=== PATIENT | female | born 1960 | race Caucasian/White ===

== ENCOUNTER 2023-08-26 10:15 | Emergency (ER) | payer OTHER, SELFPAY ==
[2023-08-26 10:21] VITALS: BP 126/86
--- NOTE | 2023-08-26 10:33 | ED.GENMED ---
History of Present Illness
General
Chief Complaint: Seizure
Source: patient and long-term records
Exam Limitations: dementia
Time Seen by Provider: 08/26/23 10:29
Nursing documentation reviewed up to this point in time: agreed with except (Pt did not fall.)
Travel History
Have you had any contact with someone who has COVID-19?: Unable to Answer
Do you have any symptoms of coronavirus? Fever > 100 degrees, chills, cough, shortness of breath, sore throat, loss of taste or smell, muscle aches, or headache?: Unable to Answer
History of Present Illness
History of Present Illness:
62-year-old female from [facility] in [place] with history of dementia, HLD, anxiety presents for possible seizure. Pt is unable to provide any history due to dementia. EMS reports pt had a fall in , then had a 'seizure.'
Unable to reach staff at [facility], message left, no call back. Also got number from pt daughter and left message on charge nurse Jammie's phone to call back.
Spoke with daughter Rhiannon, pt has no hx of seizures. Pt is more tremulous, 'this is not like her.' States she is never this tremulous.
States mom at baseline is 100% assist with walking, must hold onto someone with both hands to ambulate short distances such as to chair or bathroom. Otherwise, bed or chairbound.
08/26/2023 1128 AM
Spoke with nurse metal fabrication supervisor Jammie who states the tremors are her normal. Care staff got her up out of bed she was her normal self, 'giggling and everything seemed fine.' As she was sitting on the toilet she started to have seizure-like activity
shaking of all extremities, eyes rolled back, struck right side of head on the wall, but there was NO fall. Entire episode occurred while sitting on the toilet. Afterwards she was 'unresponsive' She never fell.
Jammie states pt does ambulate pretty frequently independently but she needs guidance, otherwise she just goes in circles.
Past History
Past History
ED Past Medical History: Psychiatric (dementia)
Review of Systems
Review of Systems
Allergies reviewed?: Yes
All Other Systems: ROS reviewed and negative except as documented in HPI and ROS
Constitutional: Denies fever
ABD/GI: Denies vomiting or diarrhea
Musculoskeletal: Denies edema
Skin: Reports no symptoms
Phy Exam
Physical Exam
Physical Exam:
GENERAL: No acute distress. Alert, demented, mumbling constantly
CONSTITUTIONAL: Afebrile.
EYES: PERRL, conjunctivae normal
Head: NC/AT
Neck: Supple
ENMT: moist mucus membranes, Pharynx nl, no intraoral trauma
RESPIRATORY: Regular respirations, nonlabored, lungs clear.
CARDIOVASCULAR: Regular rate and rhythm, no murmurs, no rubs.
GI: Soft, nontender, normal BS
MUSCULOSKELETAL: Moves with ease. Well perfused. No edema
SKIN: Warm, dry, pink
PSYCH: Anxious mood and affect. Demented. Flailing tremulous arms, constantly mumbling nonsensically
NEUROLOGIC: Awake, alert demented, unable to communicate, strength 5/5 throughout.
Course
Orders/Labs/Results
Orders:
Orders
08/26/23 10:52
Complete Blood Count/With Diff Urgent
Comprehensive Metabolic Panel Urgent
UA Reflex to Culture [Urinalysis Reflex To Culture] Urgent
Date Specimen was Collected: 08/26/23
Time Specimen was Collected: 10:37
Urine Microscopic Reflex Cult Urgent
08/26/23 11:32
CT Head W/o Iv Contrast Urgent
Comment:
Reason For Exam: questionable new seizure
08/26/23 11:56
Lorazepam [Ativan] 0.5 mg IV NOW STA
Abnormal Lab Results
08/26/23
10:52
WBC 11.6 H 10^3/uL
(4.8-10.8)
MCH 31.2 H pg
(27.0-31.0)
Abs Immat Gran (auto) 0.4 H 10^3/uL
(0-0.05)
Absolute Neuts (auto) 9.4 H 10^3/uL
(1.4-6.5)
Immature Gran % 3.0 H %
(0-0.5)
Neutrophils % 81.0 H %
(42.2-75.2)
Lymphocytes % 12.2 L %
(20.5-51.1)
Glucose 130 H mg/dl
(70-99)
Urine Ketones Trace A
(Negative)
Ur Occult Blood Reflex Trace A
(Negative)
Urine Bacteria (Reflex) Few A
(Negative)
08/26/23 10:52
08/26/23 10:52
Vital Signs
Initial and Last Documented VS:
Initial Vital Signs
Temp Pulse Resp BP Pulse Ox
99.5 F 85 11 126/86 99
08/26/23 10:21 08/26/23 10:21 08/26/23 10:21 08/26/23 10:21 08/26/23 10:21
Last Documented Vital Signs
Temp Pulse Resp BP Pulse Ox
99.5 F 88 30 126/86 99
08/26/23 10:21 08/26/23 14:15 08/26/23 14:15 08/26/23 14:00 08/26/23 10:21
MDM/Problems Addressed
Differential Diagnosis Includes:
UTI, dehydration, anxiety, seizure, advancing dementia
MDM/Problems Addressed:
62-year-old female from [facility] in [place] with history of dementia, HLD, anxiety presents for possible seizure. Pt is unable to provide any history due to dementia. EMS reports pt had a fall in [place], then had a 'seizure.'
Unable to reach staff at [facility], message left, no call back. Also got number from pt daughter and left message on charge nurse Jammie's phone to call back.
Spoke with daughter Rhiannon, pt has no hx of seizures. Pt is more tremulous, 'this is not like her.' States she is never this tremulous.
States mom at baseline is 100% assist with walking, must hold onto someone with both hands to ambulate short distances such as to chair or bathroom. Otherwise, bed or chairbound.
Afebrile
No seizure activity noted, very tremulous upper extremities, flailing upper arms around but she just had a difficult straight cathed for U/A so may be reaction to that.
08/26/2023 1146 AM
CBC with no clinically significant abnormality
CMP normal
UA negative
Pt continues with constant mumbling, trembling, at bedside with daughter, they say she gets this way when her medication is due.
Called Jammie who states she got her Alprazolam 0.5 mg one hour prior to this event and is not due again until 2 p.m.
I will give Lorazepam to calm her down for the CT scan. Family agree with all of the events of the morning she may very well be anxious, they are comfortable with the plan
08/26/2023 1320 PM
CAT scan showing nothing acute
Patient more calm after lorazepam, continues escalations of babbling and tremors arms.
No seizure activity during stay, no indication for antiseizure meds at this time, referred back to PCP and Neurology if questionable seizures recur.
Neg w/u discussed with family, pt stable for discharge.
*Critical Care Note
Total Time (30-74mins, 75-104mins- exclusive of procedures): Not Applicable
ED Attending Note
-
Portions of this chart may have been created with voice recognition software.� Occasional wrong word or��sound alike� substitutions may have occurred due to the inherent limitations of voice recognition software.
Discharge Plan
Departure
Patient Disposition: Home (Routine Discharge)
Date of Disposition: 08/26/23
Time of Disposition: 13:44
Patient with high blood pressure during this ER visit?: No
Condition: Fair
Discharge Problem:
Change in mental state
Instructions: Seizures, Adult (DC), Altered Mental Status (DC)
Prescriptions:
No Action
acetaminophen [Tylenol] 325 mg Tablet
650 mg PO Q6HPRN PRN (Reason: mild pain)
polyethylene glycol 3350 [Miralax] 17 gram Powder In Packet
8.5 g PO MOWEFR
donepezil 10 mg Tablet
10 mg PO HS
alprazolam [Xanax] 0.5 mg Tablet
0.5 mg PO BID
escitalopram oxalate [Lexapro] 20 mg Tablet
30 mg PO HS
aripiprazole [Abilify] 5 mg Tablet
5 mg PO HS
rosuvastatin [Crestor] 5 mg Tablet
5 mg PO HS
Referrals:
Medical, Personnel at [facility] [Other] - Follow up in 2-3 days
Jovita Davey MD [Active] - As needed
Laura Moe MD [Family Provider] -
Activity Restrictions/Additional Instructions:
As we discussed, there has been generalized tremors, worse at times with stimulation but no seizure activity here today.
Although I can't confirm seizure activity, I have provided instruction for seizures FYI.
Head CT show nothing worrisome.
Blood work and urine show nothing worrisome.
I have provided the name of a Neurologist to follow up with as needed.
Please have primary doctor evaluate her within next 48 hours, sooner if questionable seizure activity recurs. If recurs, she may need to be started on anti seizure medication.
Mrs. Hale had Lorazepam 0.5 mg IV here at 12 noon.
Interventions
Interventions:
*Risk Screen - Suicide Last Done: 08/26/23 10:21
*General Assessment Last Done: 08/26/23 10:21
*Neglect/Abuse Screening Last Done: 08/26/23 10:21
ED- Fall Risk Assessment Last Done: 08/26/23 14:27
*ED COVID-19 Vaccine History Last Done: 08/26/23 10:21
*Nursing Disposition Last Done: 08/26/23 14:27
ED- Cardiac Assessment Last Done: 08/26/23 10:33
ED- Neurological Assessment Last Done: 08/26/23 10:33
ED- Pulmonary Assessment Last Done: 08/26/23 10:33
Discharge Date and Time
Discharge Date/Time: 08/26/23 14:43
[2023-08-26 11:05] LABS: % Basophils 0.3 % (0-2); % Eosinophils 0.1 % (0-6); % Lymphocytes 12.2 % (20.5-51.1); % Monocytes 3.4 % (1.7-9.3); Absolute Immature Granulocytes 0.4 10^3/uL (0-0.05); Absolute Lymphocytes 1.4 10^3/uL (1.2-3.4); Absolute Monocytes 0.4 10^3/uL (0.1-0.6); Absolute Neutrophils 9.4 10^3/uL (1.4-6.5); Hematocrit 38.2 % (37.0-47.0); Hemoglobin 13.3 g/dL (12.0-16.0); Mean Corp Hgb Conc. 34.8 g/dL (33.0-37.0); Mean Corpuscular Hgb 31.2 pg (27.0-31.0); Mean Corpuscular Volume 89.7 fL (81.0-99.0); Mean Platelet Volume 8.9 fL (7.4-10.4); Nucleated Red Blood Cells % 0 %; Platelet Count 286 10^3/uL (130-400); Red Blood Cell Count 4.26 10^6/uL (4.20-5.40); Red Cell Dist. Width 13.2 % (11.5-14.5); Urine Albumin Trace (Neg - Trace); Urine Bilirubin Negative (Negative); Urine Character Clear (Clear); Urine Color Yellow; Urine Glucose Negative (Negative); Urine Ketone Trace (Negative); Urine Leukocyte Negative (Negative); Urine Nitrite Negative (Negative); Urine Occult Blood Trace (Negative); Urine Urobilinogen Negative (Neg - 1+); White Blood Cell Count 11.6 10^3/uL (4.8-10.8)
[2023-08-26 11:18] LABS: ALT (SGPT) 22 U/L (0-35); AST (SGOT) 31 U/L (14-36); Albumin 4.2 g/dl (3.5-5.0); Alkaline Phosphatase 59 U/L (38-126); Blood Urea Nitrogen 14 mg/dl (7-17); Calcium 9.4 mg/dl (8.4-10.2); Carbon Dioxide 28 mmol/L (22-30); Chloride 106 mmol/L (98-107); Glucose 130 mg/dl (70-99); Potassium 4.2 mmol/L (3.5-5.1); Sodium 139 mmol/L (135-145); Total Bilirubin 0.9 mg/dl (0.2-1.3); Total Protein 6.5 g/dl (6.3-8.2); eGFR > 60.00
[2023-08-26 11:27] LABS: Urine Granular Cast 0-2 /LPF (0); Urine Mucus Few
[2023-08-26 11:28] LABS: Urine Bacteria Few (Negative); Urine Red Blood Cell 0-2 /HPF (0-2); Urine White Cell 0-2 /HPF (0-5)
[2023-08-26 12:00] VITALS: BP 141/94
[2023-08-26] MEDS: ATIVAN 0.5 MG IV (12:04)
[2023-08-26 13:00] VITALS: BP 128/83
[2023-08-26 14:00] VITALS: BP 126/86
== END 2023-08-26 14:43 | disposition home or self-care (01) ==
LOC: EMR 10:15
PROVIDERS: Registered Nurse; EMERGENCY PHYSICIAN Student in an Organized Health Care Education/Training Program; FAMILY PHYSICIAN Internal Medicine
DX: R41.82 Altered mental status, unspecified (principal); R25.1 Tremor, unspecified; R56.9 Unspecified convulsions; F03.94 Unspecified dementia, unspecified severity, with anxiety; E78.5 Hyperlipidemia, unspecified
CPT/HCPCS: 99284; 96374; 70450; 80053; 81003; 81015; 85025

== ENCOUNTER 2023-12-02 11:33 | Emergency (ER) | payer OTHER, SELFPAY ==
[2023-12-02 11:35] VITALS: BP 105/80
[2023-12-02 11:38] VITALS: BP 105/80
[2023-12-02 11:40] VITALS: BMI 18.0
[2023-12-02 12:00] VITALS: BP 94/66
[2023-12-02 13:00] VITALS: BP 103/69
--- NOTE | 2023-12-02 13:47 | ED.GENMED ---
History of Present Illness
General
Chief Complaint: Fall
Source: records, spouse, ambulance crew and skilled nursing records
Exam Limitations: dementia
Time Seen by Provider: 12/02/23 13:03
Nursing documentation reviewed up to this point in time: agreed with
History of Present Illness
History of Present Illness:
63-year-old female with a past medical history of frontotemporal dementia, hyperlipidemia who presents to the emergency room from her living facility at [facility] in [place]; she presents via EMS but is accompanied by her . She presents for
evaluation after witnessed fall with head strike. Patient was apparently in the dining area and staff apparently witnessed that she fell down and hit her head on the leg of a chair. She sustained a minor abrasion to the scalp as well as a small
hematoma in the area. Her head on the corner of a table. She sustained a minor abrasion to the scalp as well as a small hematoma in the area. Was sent to the ER for evaluation. According to staff she is acting appropriately and did not lose
consciousness. According to she seems to be at her baseline which is essentially nonverbal, contracted. She does not take any blood thinners.
Past History
Past History
ED Past Medical History: Psychiatric (dementia)
Review of Systems
Review of Systems
Unable to obtain full review of systems at this time due to: dementia
All Other Systems: Not applicable
Phy Exam
Physical Exam
Physical Exam:
General: Awake, alert, chronically ill-appearing but not in acute distress
Head: Normocephalic, left occipital scalp hematoma and scalp abrasion but no laceration
Eyes: Conjunctiva normal, pupils equal round and reactive to light bilateral
Throat: Airway intact, handling secretions
Neck: Trachea midline, head contracted to the left which is baseline per spouse; no apparent tenderness in the cervical spine
Back: No signs of trauma to the back or flank, no apparent tenderness in the thoracic or lumbar spine
Lungs: Clear to auscultation bilaterally, no wheezing, rales, rhonchi
Heart: Regular rate and rhythm, no murmurs, gallops, or rubs appreciated
Abd: Soft, non distended, no apparent tenderness
Skin: Abrasion to left parietal scalp but no other lacerations or abrasions noted on skin exam
Extremities: Atraumatic, allows for passive range of motion all extremities without apparent discomfort
Scores
Heart Failure Risk
Heart Failure Risk Score: Not Applicable
Heart Score for Chest Pain Patients
STEMI patient?: Not applicable
Withdrawal Assessment of Alcohol
Withdrawal Assessment Completed?: Not applicable
Course
Orders/Labs/Results
Orders:
Orders
12/02/23 13:19
CT Cervical Spine W/o Iv Contr Urgent
Comment:
Reason For Exam: fall with left headstrike
CT Head W/o Iv Contrast Urgent
Comment:
Reason For Exam: fall with left headstrike
Tetanus/Diphth/Acelpertussis [Adacel] 0.5 ml IM .ONCE ONE
Vital Signs
Initial and Last Documented VS:
Initial Vital Signs
Temp Pulse Resp BP
36.6 C 65 18 105/80
12/02/23 11:38 12/02/23 11:38 12/02/23 11:38 12/02/23 11:38
Last Documented Vital Signs
Temp Pulse Resp BP Pulse Ox
36.6 C 65 18 105/80 98
12/02/23 11:38 12/02/23 11:38 12/02/23 11:38 12/02/23 11:38 12/02/23 11:40
MDM/Problems Addressed
Differential Diagnosis Includes:
Scalp hematoma, intracranial hemorrhage, concussion
MDM/Problems Addressed:
63-year-old female presents for evaluation after a fall with head strike�fall was witnessed there was no LOC. She did sustain trauma to her head on a chair and has minor abrasion and scalp hematoma. Not on blood thinners. Vital signs normal.
Physical exam as above. She is at her baseline according to who is at bedside. Check CT head and cervical spine. Update tetanus. Monitor closely reassess after the above.
CT head and cervical spine negative for any acute pathology. Patient remains at baseline with reassuring vitals. Will discharge back to living facility. comfortable with this plan.
Chronic conditions affecting care:
Dementia
*Radiology
Radiology exam reviewed: radiology read reviewed
*Pulse Oximetry
Patient hypoxic: no
*Critical Care Note
Total Time (30-74mins, 75-104mins- exclusive of procedures): Not Applicable
Data Reviewed
Review of Other/Old Records Reveals: Records
Source: records, spouse, ambulance crew and skilled nursing
Patient Management
Discussion with other providers: care home staff (Discussed directly with skilled nursing staff)
ED Attending Note
-
Portions of this chart may have been created with voice recognition software.� Occasional wrong word or��sound alike� substitutions may have occurred due to the inherent limitations of voice recognition software.
Discharge Plan
Departure
Patient Disposition: Home (Routine Discharge)
Date of Disposition: 12/02/23
Time of Disposition: 15:42
Patient with high blood pressure during this ER visit?: No
Discharge Problem:
Hematoma of scalp, Abrasion of scalp
Instructions: Head Injury in Adults (DC)
Prescriptions:
No Action
acetaminophen [Tylenol] 325 mg Tablet
650 mg PO Q6HPRN PRN (Reason: mild pain)
polyethylene glycol 3350 [Miralax] 17 gram Powder In Packet
8.5 g PO MOWEFR
donepezil 10 mg Tablet
10 mg PO HS
alprazolam [Xanax] 0.5 mg Tablet
0.5 mg PO BID
escitalopram oxalate [Lexapro] 20 mg Tablet
30 mg PO HS
aripiprazole [Abilify] 5 mg Tablet
5 mg PO HS
rosuvastatin [Crestor] 5 mg Tablet
5 mg PO HS
Referrals:
Brenham,Laura M., MD [Family Provider] - Follow up in 5-7 days
Activity Restrictions/Additional Instructions:
Thank you for visiting the Emergency Department at [facility].
1. Please schedule a follow up appointment as directed. Call first thing tomorrow morning to make an appointment.
2. If indicated, please take your medications as instructed and indicated on discharge paperwork.
3. If any of your symptoms do not improve, or persist, or become more severe within 6-12 hours, please return to the emergency department for further care.
4. Please return to the emergency department if you develop a headache, neck pain/stiffness, fever greater than 100.4F, chest pain, shortness of breath, persistent nausea, vomiting, slurred speech, difficulty walking, numbness/tingling, weakness,
signs of infection or any other symptoms that are worrisome to you.
Please call [phone] if you have any questions.
Interventions
Interventions:
*Risk Screen - Suicide Last Done: 12/02/23 11:41
*General Assessment Last Done: 12/02/23 11:41
*Neglect/Abuse Screening Last Done: 12/02/23 11:41
*ED COVID-19 Vaccine History Last Done: 12/02/23 11:41
ED-Musculoskeletal Assessment Last Done: 12/02/23 11:44
ED- Neurological Assessment Last Done: 12/02/23 11:41
ED-Skin Assessment Last Done: 12/02/23 11:43
Discharge Date and Time
Print Language: BULGARIAN
[2023-12-02] MEDS: ADACEL 0.5 ML IM (14:31)
== END 2023-12-02 16:57 | disposition home or self-care (01) ==
LOC: EMR 11:33
PROVIDERS: EMERGENCY PHYSICIAN Emergency Medicine; FAMILY PHYSICIAN Internal Medicine
DX: S00.01XA Abrasion of scalp, initial encounter (principal); W19.XXXA Unspecified fall, initial encounter; E78.5 Hyperlipidemia, unspecified; Z23 Encounter for immunization; F02.80 Dementia in other diseases classified elsewhere, unspecified severity, without behavioral disturbance, psychotic disturbance, mood disturbance, and anxiety
CPT/HCPCS: 99284; 90471; 70450; 72125; 90715

== ENCOUNTER 2024-03-28 18:07 | Inpatient (IN) | payer OTHER, SELFPAY ==
[2024-03-28] VITALS (7 sets, daily range): BP systolic 95–135; BP diastolic 61–87; BMI 15.5
--- NOTE | 2024-03-28 14:53 | ED.GENMED ---
History of Present Illness
General
Chief Complaint: Fever
Time Seen by Provider: 03/28/24 14:33
History of Present Illness
History of Present Illness:
Patient presents to the emergency department with fever. She presents from [facility] where she stays with her history of frontotemporal dementia. She was found to have a fever there today to 100.6 as well as generalized weakness
decreased p.o. intake and decreased responsiveness. Was initially hypotensive for medics but responded to IV fluid bolus. Patient is nonverbal at baseline and unable to provide any history. No further history available at this time
Past History
Past History
ED Past Medical History: Psychiatric (dementia)
Phy Exam
Physical Exam
Physical Exam:
GENERAL APPEARANCE: Chronically ill-appearing, in no distress, awake
EYES lids/conjunctiva normal
EARS/NOSE/THROAT Mucous membranes tacky, uvula midline without oral pharyngeal erythema, exudate or swelling
HEAD/NECK normocephalic atraumatic, neck is supple.
RESPIRATORY respiratory effort normal, no accessory muscle use. Lungs clear to auscultation without rhonchi, wheezes, rales
CARDIAC Regular rate and rhythm, no edema.
ABDOMINAL Soft, no obvious tenderness. No distention.
MUSCLES/EXTREMITIES No abnormal range of motion, no swelling.
SKIN Warm, pink and dry. No rashes
NEUROLOGICAL nonverbal, moves all extremities, no gross facial asymmetry, pupils equal and reactive to light
Sepsis
Sepsis Screening
Sepsis Assessment: Sepsis
Sepsis Screen
Sepsis Screen: Sepsis
Date: 03/29/24
Time: 20:48
Course
Orders/Labs/Results
Orders:
Orders
03/28/24 14:34
Electrocardiogram (*1) Urgent
Reason for Study: Chest Pain
Cardiac Monitoring- Treatment ONCE
EKG- Treatment ONCE
IV Insert/Care/Rem.- Treatment PRN
03/28/24 14:50
0.9% Sodium Chloride 1000 ml [Nss] 1,000 ml IV BOLUS
03/28/24 14:52
CR Chest Single View Urgent
Reason For Exam: febrile
03/28/24 Dinner
NPO
Allow oral meds: Yes
Allow clear liquids: Sips of Clears
03/28/24 15:06
COVID-19 Antigen Urgent
Source: Nasal Swab
Complete Blood Count/With Diff Urgent
Lactic Acid Urgent
Blood Culture Urgent
GISELLA Source: Blood/Venous
Specimen Description:
Influenza A+B Rapid Molecular Urgent
GISELLA Source: Nasal Swab
Specimen Description:
03/28/24 15:17
Urinalysis Reflex To Culture Urgent
Date Specimen was Collected: 03/28/24
Time Specimen was Collected: 15:15
Urine Microscopic Reflex Cult Urgent
Blood Culture Urgent
GISELLA Source: Blood/Venous
Specimen Description:
03/28/24 15:36
Comprehensive Metabolic Panel Urgent
Troponin I Urgent
03/28/24 17:00
Dextrose 5%/0.45%Sodchl 1000ML [D5/0.45%NaCl] 1,000 ml IV 200 mls/hr
03/28/24 17:28
Admit/Transfer Patient As Directed
Co-Sign Provider:
Level of Care: Inpatient admission
Assign to:: Medical/Surgical
Physician / Group: Leonel/hospitalist
Diagnosis: Decreased consciousness, hypernatremia, fever
Reason for Hospitalization: Decreased consciousness, hypernatremia, fever
Expected length of stay greater than two midnights?: Yes
ELOS- Estimated Length of Stay in days: 3
I certify the patient meets the requirements for IP care: Yes
PRN Pain Medication Management As Directed
May give lesser potent ordered pain med per pt: Yes
preference::
Protocol:: Medication orders for pain may be administered in a
manner that supports deferring to patient preference
when the pt is:
- Requesting an ordered lesser potent pain medication.
Least to most potent pain medications are defined
as: acetaminophen < NSAID < tramadol < opioids
(morphine, oxycodone, hydromorphone).
- Requesting a lesser dose of the same medication IF
ORDERED.
- Requesting a less intrusive route of administration
if both routes are prescribed by the provider (PO <
IV).
03/28/24 17:29
Code Status As Directed
Resuscitation Status: Do not resuscitate
Reached after discussion with pt or family/Healthcare POA: Yes
DNR Bracelet Application ONCE
03/28/24 17:36
Procalcitonin Routine
PCT Algorithmm Indication: Sepsis
03/28/24 17:42
MetroNIDAZOLE 500 MG/100 ML [Flagyl 500 mg] 100 ml IV NOW
03/28/24 17:47
Vancomycin 1 Gram/200 ml [Vancocin] 1 gram in 200 ml IV NOW
03/28/24 18:00
CefTRIAXone [Rocephin] 1,000 mg IV Q24H
Sterile Water [Sterile Water For Injection] 10 ml IV Q24H
03/28/24 19:40
Bisacodyl [Dulcolax] 10 mg RECTAL [id number] PRN
Docusate W/Senna [Senokot-S] 1 tablet PO BIDPRN PRN
Enoxaparin Sodium [Lovenox] 30 mg SC QPM
Polyethylene Glycol Powder [Miralax] 17 grams PO DAILYPRN PRN
03/28/24 19:40
Activity As Directed
Activity Level: As Tolerated
Vital Signs As Directed
Frequency: Per unit guidelines
Speech Therapy Eval & Treat Routine
DX Deep Vein Thrombosis Video Routine
03/28/24 22:00
0.45% Sodium Chloride 1000 ml [0.45%NaCl] 1,000 ml IV 120 mls/hr
03/29/24 08:16
Basic Metabolic Panel IN AM
Complete Blood Count/No Diff IN AM
03/30/24 06:00
Basic Metabolic Panel IN AM
Complete Blood Count/No Diff IN AM
Abnormal Lab Results
03/28/24 03/28/24 03/28/24
15:06 15:17 15:36
WBC 12.1 H 10^3/uL
(4.8-10.8)
MCH 31.6 H pg
(27.0-31.0)
MCHC 32.9 L g/dL
(33.0-37.0)
Absolute Neuts (auto) 9.5 H 10^3/uL
(1.4-6.5)
Neutrophils % 78.8 H %
(42.2-75.2)
Lymphocytes % 15.1 L %
(20.5-51.1)
Sodium 162 H* mmol/L
(135-145)
Chloride 127 H mmol/L
(98-107)
BUN 43 H mg/dl
(7-17)
Creatinine 1.1 H mg/dL
(0.6-1.0)
Glucose 101 H mg/dl
(70-99)
Alkaline Phosphatase 37 L U/L
(38-126)
Total Protein 5.9 L g/dl
(6.3-8.2)
Ur Occult Blood Reflex Trace A
(Negative)
Urine Bilirubin 1+ A
(Negative)
Urine RBC 3-6 A /HPF
(0-2)
Urine Bacteria (Reflex) Few A
(Negative)
03/28/24 15:06
03/28/24 15:36
Vital Signs
Initial and Last Documented VS:
Initial Vital Signs
Pulse Resp Pulse Ox
82 14 99
03/28/24 14:33 03/28/24 14:33 03/28/24 14:33
Last Documented Vital Signs
Temp Pulse Resp BP Pulse Ox
98.0 F 69 18 122/58 98
03/29/24 15:00 03/29/24 15:00 03/29/24 15:00 03/29/24 15:00 03/29/24 15:00
*Critical Care Note
Total Time (30-74mins, 75-104mins- exclusive of procedures): Not Applicable
ED Attending Note
ED Attending Note
ED Attending Note:
patient with end stage frontotemporal dementia, comes from [facility] with general weakness, decreased PO, decreased activity, She had 1 low grade fever today of 100.6
she is afebrile here , hemodynamically stable
WBC 12, lactate 1.7. Urine is clean. Chest xray is clear. No s/s of infection clinically.
She has a Na 162, Cl 127, BUN 43 Cr 1.1
suspect from marked hypovolemia
initially she got 1L NSS, now she is on D5 1/2NS gtt
given lack of source, no antibiotics given, will admit for continued resuscitation, monitoring
-
Portions of this chart may have been created with voice recognition software.� Occasional wrong word or��sound alike� substitutions may have occurred due to the inherent limitations of voice recognition software.
Discharge Plan
Departure
Patient Disposition: Admit
Date of Disposition: 03/28/24
Time of Disposition: 16:37
Presentation/result/management discussed w/ accepting MD/DO: Hospitalist
Discharge Problem:
Acute hypernatremia, Acute dehydration
Interventions
Interventions:
*Risk Screen - Suicide Last Done: 03/28/24 14:35
*General Assessment Last Done: 03/28/24 14:35
*Neglect/Abuse Screening Last Done: 03/28/24 14:35
ED- Fall Risk Assessment Last Done: 03/28/24 15:10
*ED COVID-19 Vaccine History Last Done: 03/28/24 15:10
*Nursing Disposition Last Done: 03/28/24 19:30
ED- Neurological Assessment Last Done: 03/28/24 15:10
ED-Skin Assessment Last Done: 03/28/24 15:10
Discharge Date and Time
Discharge Date/Time: 03/28/24 19:30
[2024-03-28 15:17] LABS: % Basophils 0.4 % (0-2); % Eosinophils 0.4 % (0-6); % Immature Granulocytes 0.2 % (0-0.5); % Lymphocytes 15.1 % (20.5-51.1); % Monocytes 5.1 % (1.7-9.3); % Neutrophils 78.8 % (42.2-75.2); Absolute Basophils 0.1 10^3/uL (0-0.2); Absolute Eosinophils 0.1 10^3/uL (0-0.7); Absolute Lymphocytes 1.8 10^3/uL (1.2-3.4); Absolute Monocytes 0.6 10^3/uL (0.1-0.6); Absolute Neutrophils 9.5 10^3/uL (1.4-6.5); Hematocrit 44.1 % (37.0-47.0); Hemoglobin 14.5 g/dL (12.0-16.0); Mean Corp Hgb Conc. 32.9 g/dL (33.0-37.0); Mean Corpuscular Hgb 31.6 pg (27.0-31.0); Mean Corpuscular Volume 96.1 fL (81.0-99.0); Mean Platelet Volume 10.2 fL (7.4-10.4); Nucleated Red Blood Cells % 0 %; Platelet Count 253 10^3/uL (130-400); Red Blood Cell Count 4.59 10^6/uL (4.20-5.40); Red Cell Dist. Width 12.6 % (11.5-14.5); White Blood Cell Count 12.1 10^3/uL (4.8-10.8)
[2024-03-28] MEDS: NSS 1000 IV (15:22)
[2024-03-28 15:31] LABS: Lactic Acid 1.7 mmol/L (0.7-2.0)
--- NOTE | 2024-03-28 15:34 | EDRN ---
SST tube for CMP and Green tube for Troponin were redrawn and sent to lab at this time by ED PCT Debi.
[2024-03-28 15:38] LABS: Urine Albumin Trace (Neg - Trace); Urine Bilirubin 1+ (Negative); Urine Character Clear (Clear); Urine Color Yellow; Urine Glucose Negative (Negative); Urine Ketone Negative (Negative); Urine Leukocyte Negative (Negative); Urine Nitrite Negative (Negative); Urine Occult Blood Trace (Negative); Urine Urobilinogen Negative (Neg - 1+)
[2024-03-28 15:48] LABS: COVID-19 Antigen Negative (Negative)
[2024-03-28 15:51] LABS: Urine Mucus Moderate
[2024-03-28 15:52] LABS: Urine Bacteria Few (Negative)
[2024-03-28 16:04] LABS: ALT (SGPT) < 10 U/L (0-35); AST (SGOT) 16 U/L (14-36); Albumin 3.6 g/dl (3.5-5.0); Alkaline Phosphatase 37 U/L (38-126); Blood Urea Nitrogen 43 mg/dl (7-17); Calcium 8.9 mg/dl (8.4-10.2); Carbon Dioxide 25 mmol/L (22-30); Chloride 127 mmol/L (98-107); Glucose 101 mg/dl (70-99); Potassium 4.1 mmol/L (3.5-5.1); Sodium 162 mmol/L (135-145); Total Bilirubin 0.7 mg/dl (0.2-1.3); Total Protein 5.9 g/dl (6.3-8.2); eGFR 56.11
--- NOTE | 2024-03-28 16:04 | EDRN ---
Critical Sodium value of [address] Azul at this time.
[2024-03-28 16:08] LABS: Troponin I < 0.012 ng/ml
--- NOTE | 2024-03-28 16:20 | EDRN ---
Dr. Azul in room speaking w/ family at this time.
[2024-03-28] MEDS: D5/0.45%NACL 1000 IV (16:24)
--- NOTE | 2024-03-28 16:33 | EDRN ---
Daughter states facial rash is acne scars from pt's youth and chronic.
--- NOTE | 2024-03-28 17:06 | HPS.HSE ---
Addendum entered and electronically signed by Renetta Castaneda MD 03/28/24 17:44:
correction to below: Code status is DNR DNI, confirmed with family at bedside
Original Note:
Family Physician
-
Family Physician: Laura Moe
Chief Complaint
-
Decreased level of consciousness, decreased responsiveness, fever
History of Present Illness
HPI: 63 yo F from memory unit with PMH frontotemporal dementia (nonverbal at baseline), hyperlipidemia, p/w generalized weakness, decreased responsiveness, decreased oral intake and fever at 100.6.
She was found hypotensive by EMS but BP responded to IV fluid. She cannot provide history due to nonverbal at baseline.
Family stated that at baseline she would eat modified diet when fed, and requires a lot of assistance with ambulation (mostly wheelchair-bound).
Medical History
Past Medical History
Past Medical History: Reports Other
Additional Past Medical History:
frontotemporal dementia (nonverbal at baseline),
hyperlipidemia,
Uterine cancer status post hysterectomy
Past Surgical History: Reports Gynocological and Other
Additional Past Surgical History:
x 2
hysterectomy
Mohs surgery on the scalp
Skin biopsy for basal cell carcinoma
Social History
Tobacco: Non-smoker
Alcohol: None
Living: [facility] ([facility] unit)
Family History
Family History: Not pertinent
Allergies / Home Medications
Allergies reflects when Allergies were last updated in [facility].
Home Medications with original date entered in [facility]
Allergy/Medication List:
Allergies
Allergy/AdvReac Type Severity Reaction Status Date / Time
No Known Allergies Allergy Verified 08/26/23 10:59
Home Medications
acetaminophen 325 mg tablet (Tylenol) 650 mg PO Q6HPRN PRN mild pain/elevated temp 08/26/23
aripiprazole 5 mg tablet (Abilify) 5 mg PO HS 08/26/23
donepezil 10 mg tablet 10 mg PO HS 08/26/23
escitalopram oxalate 20 mg tablet (Lexapro) 30 mg PO HS 08/26/23
polyethylene glycol 3350 17 gram oral powder packet (Miralax) 8.5 g PO MOWEFR 08/26/23
rosuvastatin 5 mg tablet (Crestor) 5 mg PO HS 08/26/23
Calazime 1 applic topical TID 03/28/24
benztropine 1 mg tablet 1 mg PO HS 03/28/24
cyanocobalamin (vitamin B-12) 1,000 mcg tablet 1,000 mcg PO DAILY 03/28/24
lorazepam 0.5 mg tablet 0.25 mg PO HS 03/28/24
Review of Systems
-
Unable to obtain full review of systems at this time due to: Dementia
Physical Exam
Vital Signs
Vital Signs
Temp Pulse Resp BP Pulse Ox
37.1 C 68 16 112/75 99
03/28/24 14:35 03/28/24 16:30 03/28/24 16:30 03/28/24 16:08 03/28/24 16:30
Physical Exam
General: Well Developed, Appears Chronically Ill and Cachectic; No Conversant
HEENT: NormoCephalic, Moist mucous membranes and Atraumatic
Respiratory: Clear and Non Labored Respirations; No Accessory Resp Muscle Use
Cardiac: S1/S2 and Regular Rhythm; No Murmur or Rub
GI: Soft, Non Tender, Non Distended and Normal Bowel Sounds; No Organomegaly
Rectal: Deferred by Provider
Musculoskeletal: No Clubbing, No Cyanosis and No Edema
Skin: No Rash
Neuro: Other (Lethargic but arousable by verbal stimuli)
Psych: Calm
Laboratory Results
-
03/28/24 15:06
03/28/24 15:36
Laboratory Results
Lactic Acid Cancelled 03/28/24 19:00
Total Bilirubin 0.7 mg/dl (0.2-1.3) 03/28/24 15:36
AST 16 U/L (14-36) 03/28/24 15:36
ALT < 10 U/L (0-35) 03/28/24 15:36
Alkaline Phosphatase 37 U/L (38-126) L 03/28/24 15:36
Troponin I < 0.012 ng/ml 03/28/24 15:36
Data Reviewed
-
Diagnostic Radiology: Report Reviewed by me
Lab Data: Labs Reviewed by me
Impression/Plan
-
HPI: 63 yo F from memory unit with PMH frontotemporal dementia (nonverbal at baseline), hyperlipidemia, p/w generalized weakness, decreased responsiveness, decreased oral intake and fever at 100.6.
She was found hypotensive by EMS but BP responded to IV fluid. She cannot provide history due to nonverbal at baseline.
Family stated that at baseline she would eat modified diet when fed, and requires a lot of assistance with ambulation (mostly wheelchair-bound).
A/P:
# Decreased p.o. intake with hypernatremia, Hypotension, SUSY likely prerenal; clinical severe dehydration
Sodium level 162 on admission, continue half-normal saline
Monitor sodium level
Monitor BP with IVF support
Monitor serum creatinine
# Fever, unclear cause currently
COVID/flu negative
UA few bacteria
Chest x-ray NAD
Check blood culture
Check procal
Cover with empiric antibiotic ceftriaxone, vancomycin, Flagyl
Consider speech eval for aspiration
# Frontotemporal dementia (nonverbal at baseline)
SPL eval
Hold p.o. meds currently
PT OT eval when clinically more stable
# hyperlipidemia
DVT ppx: Lovenox SQ
FC
--- NOTE | 2024-03-28 17:43 | EDRN ---
Pharmacy called and working on antibiotics at this time.
[2024-03-28] MEDS: FLAGYL 500 MG 100 IV (18:05)
[2024-03-28] MEDS: ROCEPHIN 1000 MG IV (18:05)
[2024-03-28] MEDS: STERILE WATER FOR INJECTION 10 ML IV (18:09)
[2024-03-28 18:10] LABS: Procalcitonin < 0.05 ng/ml (0.0-0.25)
--- NOTE | 2024-03-28 18:45 | PHA.VAN.IN ---
Addendum entered and electronically signed by Jenny Reynolds RPH 03/29/24 08:10:
Peak level for 03/29 and trough level for 03/30 cancelled.
Original Note:
Assessment
- Assessment
Renal Function: Unknown baseline
Maximum Temperature: 98.8
Concomitant Antimicrobials: CEFTRIAXONE
AUC Dosing Plan
- Empiric Dosing
Initial / Loading Dose: 1 GRAM (23MG/KG) 03/28 PENDING ADMINISTRATION
Maintenance Regimen: 500MG Q24H
Estimated AUC (mcg*h/mL): 501
Estimated Peak (mcg*h/mL): 29.9
Estimated Trough (mcg/ml): 13.8
Estimated Half Life (H): 20.7
- Monitoring
Peak level is ordered to be drawn (date/time): 03/29 830
Trough level is ordered to be drawn (date/time): 03/30 530
Pharmacokinetics Vancomycin I
- -
Patient Age: 63
Patient Sex: Female
Vancomycin Day #: 1
Indication: Other (UNKNOWN SOURCE OF FEVER)
Requesting Provider: LONNIE
Pertinent Antimicrobial Allergies:
NONE
Height / Weight:
Height 5 ft 5 in
Actual Weight 43.3 kg
Pertinent Past Medical History: PER NOTE MOSTLY WHEELCHAIR BOUND, BMI= 15.9
- Vital Signs / Lab Results
Temp Pulse Resp BP Pulse Ox
98.8 F 65 12 99/67 98
03/28/24 14:35 03/28/24 18:30 03/28/24 18:30 03/28/24 18:00 03/28/24 18:30
Lab Results - Hematology
03/28/24
15:06
WBC 12.1 H
Lab Results - Chemistry
03/28/24 03/28/24
15:06 15:36
BUN Cancelled 43 H
Creatinine Cancelled 1.1 H
Estimated Creat Clear Cancelled
Albumin Cancelled 3.6
03/28/24 03/28/24 03/28/24
15:00 15:06 19:00
Lactic Acid Cancelled 1.7 Cancelled
Lab Results - Urine
03/28/24
15:17
Urine Nitrite (Reflex) Negative
Leukocyte Esterase Rfl Negative
Urine WBC (Reflex) 6-10
Ur Squamous Epith Cells 3-5
Urine Bacteria (Reflex) Few A
Microbiology Results
03/28/24 15:06 Influenza Types A & B (YOSEPH) - Final
Nasal Swab Negative for Influenza A & B, NAAT
Negative results must be combined with clinical observations
and patient history.
Nucleic Acid Amplification test (NAAT)performed on the
[employer] platform.
[2024-03-28] MEDS: VANCOCIN 200 IV (19:16)
--- NOTE | 2024-03-28 20:32 | PTCARENOTE ---
Receive pt from ER. Pt nonverbal, opens eye when called. Calm, in no distress. Pt pulled over to her bed, very frail. IVF and Vanco infusing. and daughter at the bedside. VSS (T=97.8, HR=64, RR=18, DW=829/63, SpO2=98% on RA). Will continue
to monitor the pt.
[2024-03-28] MEDS: 0.45%NACL 1000 IV (21:06)
[2024-03-28] MEDS: HEPARIN 5000 UNITS SC (21:08)
[2024-03-29] MEDS: 0.45%NACL 1000 IV (05:26)
[2024-03-29] MEDS: VANCOCIN HCL 500 MG 100 IV (05:27)
[2024-03-29 07:00] VITALS: BP 118/67
[2024-03-29] MEDS: HEPARIN 5000 UNITS SC ×2 (08:20→20:19)
--- NOTE | 2024-03-29 08:47 | W.PN.HOSP.TC ---
Today's Communication/Plan
-
see A/P
GOC discussion ongoing
Assessment / Plan
Assessment / Plan
HPI: 63 yo F from memory unit with PMH frontotemporal dementia (nonverbal at baseline), hyperlipidemia, p/w generalized weakness, decreased responsiveness, decreased oral intake and fever at 100.6.
She was found hypotensive by EMS but BP responded to IV fluid. She cannot provide history due to nonverbal at baseline.
Family stated that at baseline she would eat modified diet when fed, and requires a lot of assistance with ambulation (mostly wheelchair-bound).
A/P:
# Decreased p.o. intake with hypernatremia, Hypotension, SUSY likely prerenal; clinical severe dehydration
Sodium level 162 on admission, continue half-normal saline, Monitor sodium level
BP improved with IVF support
Monitor serum creatinine
# Fever at home, unclear cause currently
COVID/flu negative, Chest x-ray NAD, Procal negative
UA few bacteria
Check blood culture
Cover with empiric antibiotic ceftriaxone, vancomycin. Low threshold to stop
Speech eval for aspiration
# Frontotemporal dementia (nonverbal at baseline)
# severe dementia
Per daughter, pt unable to feed herself.
Hold p.o. meds currently
SPL eval
PT OT eval
# hyperlipidemia
DVT ppx: Lovenox SQ
FC
DW daughter at bedside. Discussed GOC. Daughter will reach out to the rest of her family members and will let us know if they would like pt to be transitioned to hospice care.
Anticipated Discharge: 24 - 48 hours
Subjective/Interval History
-
Date of Service: March 29, 2024
Objective Data
-
Labs:
Laboratory Results
03/29/24
08:16
WBC Pending
Hgb Pending
Hct Pending
Plt Count Pending
Sodium Pending
Potassium Pending
Chloride Pending
Carbon Dioxide Pending
BUN Pending
Creatinine Pending
Glucose Pending
Calcium Pending
Vital Signs:
Vital Signs
Temp Pulse Resp BP Pulse Ox
36.4 C 63 18 118/67 98
03/29/24 07:00 03/29/24 07:00 03/29/24 07:00 03/29/24 07:00 03/29/24 07:00
I&O
03/28/24 03/29/24 03/30/24
06:59 06:59 06:59
Intake Total 1220 / 1220
Balance 1220 / 1220
Review of Systems
-
Unable to obtain full review of systems at this time due to: Dementia
Physical Exam
-
General: Well Developed, No Apparent Distress, Comfortable, Appears Chronically Ill and Cachectic; Negative Respiratory Distress
HEENT: Normocephalic, Atraumatic, Nose Appears Normal and Ears Appear Normal; Negative Oxygen
Respiratory: Clear to Auscultation and Non Labored Respirations; Negative Accessory Resp Muscle Use
Cardiac: Regular Rhythm and S1/S2
GI: Soft, Nontender and Nondistended
Skin: Warm and Dry
Psych: Calm and Apparent Dementia; Negative Intact Judgement/Insight
Data Reviewed
-
Labs: Labs Reviewed by me
[2024-03-29 09:10] LABS: Hematocrit 32.6 % (37.0-47.0); Hemoglobin 11.1 g/dL (12.0-16.0); Mean Corpuscular Hgb 31.8 pg (27.0-31.0); Mean Corpuscular Volume 93.4 fL (81.0-99.0); Mean Platelet Volume 10.4 fL (7.4-10.4); Platelet Count 153 10^3/uL (130-400); Red Blood Cell Count 3.49 10^6/uL (4.20-5.40); Red Cell Dist. Width 12.5 % (11.5-14.5); White Blood Cell Count 9.3 10^3/uL (4.8-10.8)
[2024-03-29 09:42] LABS: Blood Urea Nitrogen 27 mg/dl (7-17); Calcium 7.9 mg/dl (8.4-10.2); Carbon Dioxide 22 mmol/L (22-30); Chloride 123 mmol/L (98-107); Estimated Creatinine Clearance 63 ml/min; Glucose 85 mg/dl (70-99); Potassium 3.4 mmol/L (3.5-5.1); Sodium 156 mmol/L (135-145); eGFR > 60.00
[2024-03-29 11:35] VITALS: BP 98/59; PULSE 56; O2SAT 100
[2024-03-29 11:47] VITALS: BMI 15.5
[2024-03-29 12:04] VITALS: BP 98/59; PULSE 56; O2SAT 100
--- NOTE | 2024-03-29 12:53 | PTOTSP ---
Speech Therapy Consult:
Pt mostly non-verbal, however briefly opened eyes and moaned when given stimulation. Pt unable to maintain arousal for safe PO intake. Pt's daughter present and reported a baseline diet of protein shakes/soups with a straw and endorsed a recent
decline in function. Pt's daughter also mentioned pending discussion with family regarding hospice versus continuation of services.
Recommend:
1. NPO
2. Medications via non oral route
3. Oral care 3x/daily
4. ST to follow pending family wishes for initiation of oral diet versus hospice care
[2024-03-29] MEDS: KCL 1020 MEQ IV (13:05)
--- NOTE | 2024-03-29 13:38 | PHA.VAN.FU ---
Vancomycin Assessment / Plan
- Assessment
Renal Function: SCR Decreasing
WBC's are: Trending Down
In the past 24 hrs, patient has been: Hypothermic
Concomitant Antimicrobials: CEFTRIAXONE
- Dosing Plan
Continue: begin vancomycin 750 mg q24h 0603/30
Dosing Comments: dose adjusted from 500 mg q24h to 750 mg q24h (SCr 1.1-> 0.6)
- Monitoring Plan
No level(s) ordered at this time: consider levels in a day or so
- Follow Up
Pharmacy will continue to follow.
Vancomycin Follow UP
- -
Patient Age: 63
Patient Sex: Female
Vancomycin Day #: 2
Indication: Other (UNKNOWN SOURCE OF FEVER)
Requesting Provider: LONNIE
Pertinent Antimicrobial Allergies:
NONE
Height / Weight:
Height 5 ft 5 in
Actual Weight 42.326 kg
Pertinent Past Medical History: PER NOTE MOSTLY WHEELCHAIR BOUND, BMI= 15.9
- Vital Signs / Lab Results
Temp Pulse Resp BP Pulse Ox
97.5 F 63 18 118/67 98
03/29/24 07:00 03/29/24 07:00 03/29/24 07:00 03/29/24 07:00 03/29/24 08:20
Lab Results - Hematology
03/28/24 03/29/24
15:06 08:16
WBC 12.1 H 9.3
Lab Results - Chemistry
03/28/24 03/28/24 03/29/24
15:06 15:36 08:16
BUN Cancelled 43 H 27 H
Creatinine Cancelled 1.1 H 0.6
Estimated Creat Clear Cancelled 63
Albumin Cancelled 3.6
03/28/24 03/28/24 03/28/24
15:00 15:06 19:00
Lactic Acid Cancelled 1.7 Cancelled
Lab Results - Urine
03/28/24
15:17
Urine Nitrite (Reflex) Negative
Leukocyte Esterase Rfl Negative
Ur Squamous Epith Cells 3-5
Microbiology Results
03/28/24 15:06 Influenza Types A & B (YOSEPH) - Final
Nasal Swab Negative for Influenza A & B, NAAT
Negative results must be combined with clinical observations
and patient history.
Nucleic Acid Amplification test (NAAT)performed on the
[employer] platform.
Therapeutic Drug Monitoring
Vancomycin Peak Cancelled 03/29/24 08:30
[2024-03-29 15:00] VITALS: BP 122/58
[2024-03-29] MEDS: STERILE WATER FOR INJECTION 10 ML IV (17:38)
[2024-03-29] MEDS: ROCEPHIN 1000 MG IV (17:38)
[2024-03-29 23:17] VITALS: BP 104/63
[2024-03-30] MEDS: KCL 1020 MEQ IV ×2 (03:31→18:11)
[2024-03-30] MEDS: VANCOCIN 150 IV (05:18)
[2024-03-30 07:44] LABS: Hematocrit 34.1 % (37.0-47.0); Hemoglobin 11.9 g/dL (12.0-16.0); Mean Corp Hgb Conc. 34.9 g/dL (33.0-37.0); Mean Corpuscular Hgb 31.6 pg (27.0-31.0); Mean Corpuscular Volume 90.5 fL (81.0-99.0); Mean Platelet Volume 11.2 fL (7.4-10.4); Platelet Count 168 10^3/uL (130-400); Red Blood Cell Count 3.77 10^6/uL (4.20-5.40); Red Cell Dist. Width 11.9 % (11.5-14.5); White Blood Cell Count 8.9 10^3/uL (4.8-10.8)
[2024-03-30 07:54] VITALS: BP 120/75
[2024-03-30 08:11] LABS: Blood Urea Nitrogen 12 mg/dl (7-17); Calcium 8.3 mg/dl (8.4-10.2); Carbon Dioxide 25 mmol/L (22-30); Chloride 112 mmol/L (98-107); Estimated Creatinine Clearance 63 ml/min; Glucose 112 mg/dl (70-99); Potassium 3.8 mmol/L (3.5-5.1); Sodium 147 mmol/L (135-145); eGFR > 60.00
--- NOTE | 2024-03-30 08:29 | PHA.VAN.FU ---
Vancomycin Assessment / Plan
- Assessment
Renal Function: Stable
WBC's are: WNL
In the past 24 hrs, patient has been: Afebrile
Concomitant Antimicrobials: ceftriaxone
- Dosing Plan
Continue: vancomycin 750 mg q24h - first dose 03/30/24 0600
Dosing Comments: pt recd 1000 mg 03/28 1800; 500 mg 03/29 0600; starting 750 mg q24h today
- Monitoring Plan
No level(s) ordered at this time: consider levels when pt reaches steady state
- Follow Up
Pharmacy will continue to follow.
Vancomycin Follow UP
- -
Patient Age: 63
Patient Sex: Female
Vancomycin Day #: 3
Indication: Other (UNKNOWN SOURCE OF FEVER)
Requesting Provider: LONNIE
Pertinent Antimicrobial Allergies:
NONE
Height / Weight:
Height 5 ft 5 in
Actual Weight 42.326 kg
Pertinent Past Medical History: PER NOTE MOSTLY WHEELCHAIR BOUND, BMI= 15.9
- Vital Signs / Lab Results
Temp Pulse Resp BP Pulse Ox
98.3 F 59 17 120/75 100
03/30/24 07:54 03/30/24 07:54 03/30/24 07:54 03/30/24 07:54 03/30/24 07:54
Lab Results - Hematology
03/28/24 03/29/24 03/30/24
15:06 08:16 06:13
WBC 12.1 H 9.3 8.9
Lab Results - Chemistry
03/28/24 03/28/24 03/29/24
15:06 15:36 08:16
BUN Cancelled 43 H 27 H
Creatinine Cancelled 1.1 H 0.6
Estimated Creat Clear Cancelled 63
Albumin Cancelled 3.6
03/30/24
06:13
BUN 12
Creatinine 0.6
Estimated Creat Clear 63
Albumin
03/28/24 03/28/24 03/28/24
15:00 15:06 19:00
Lactic Acid Cancelled 1.7 Cancelled
Microbiology Results
03/28/24 15:17 Blood Culture - Preliminary
Blood/Venous No Growth in 24 hours- Final report to follow
03/28/24 15:06 Blood Culture - Preliminary
Blood/Venous No Growth in 24 hours- Final report to follow
03/28/24 15:06 Influenza Types A & B (YOSEPH) - Final
Nasal Swab Negative for Influenza A & B, NAAT
Negative results must be combined with clinical observations
and patient history.
Nucleic Acid Amplification test (NAAT)performed on the
[employer] platform.
Therapeutic Drug Monitoring
Vancomycin Peak Cancelled 03/29/24 08:30
--- NOTE | 2024-03-30 10:21 | W.PN.HOSP.TC ---
Addendum entered and electronically signed by Ezekiel Lockhart MD 03/30/24 22:07:
Attending Addendum-
I saw and evaluated the patient. I reviewed the resident�s note and agree with findings and plan as documented in the resident�s note. Sub: Patient pleasantly demented. able to answer questions intermittently. Unable to obtain Full 12 point ROS.
Denies Pain Exam: Vitals reviewed in chart GEN-NAD heart RRR lungs clear abd soft LE no edema AAO x 0 skin dry
Plan:
# Poor p.o. intake with hypernatremia, hypotension, SUSY prerenal; clinical severe dehydration
- Sodium level 162 on admission improved transiently with IVF
- BP improved with IVF support
- poor prog hospice appropriate
- limit lab draws and maintain dignity
- DC IVF
# Fever at home, unclear cause currently
COVID/flu negative, Chest x-ray NAD, Procal negative
possible aspiration
UA few bacteria
DC antibiotic ceftriaxone, vancomycin
poor prog hospice appropriate
# Frontotemporal dementia (nonverbal at baseline)
# severe dementia
- pt unable to feed herself as baseline
- extremely poor QOL
-Hold p.o. meds currently
- hospice appropriate- c/s
# hyperlipidemia, depression
DVT ppx: Lovenox SQ
Code status-DNR/DNI
dispo from [facility]- may be able to DC back on hospice
ACP
Patient unable to consent, was with and son, time spent explanation of advance directives, changes in health status, patient�s health care wishes if the patient becomes unable to make health decisions, goals of care, code status, and
prognosis- transition to hospice- 20 minutes
Time spent on coordination of care, review of hospital records/labs/rads, med reconciliation, d/w SW, nursing staff, resident and family total time documented is exclusive of any additional time listed that was spent in advance care planning
discussion - 55 minutes
Original Note:
Today's Communication/Plan
-
Patient is switching to hospice
Assessment / Plan
Assessment / Plan
63-year-old female with past medical history of frontotemporal dementia, hyperlipidemia, generalized weakness, decreased responsiveness, decreased oral intake, and fever 100.6 was found hypotensive by EMS. BP responded to fluid. Patient unable to
provide history due to dementia.
A/P:
# Decreased p.o. intake with hypernatremia, Hypotension, SUSY likely prerenal; clinical severe dehydration
Sodium level 162 on admission, Today 147.
BP stable
d/c fluids as pt is switching to hospice
# Fever at home, unclear cause currently
COVID/flu negative, Chest x-ray NAD, Procal negative
UA few bacteria
Check blood culture
d/c antibiotics as pt is moving to hospice
Speech eval for aspiration
# Frontotemporal dementia (nonverbal at baseline)
# severe dementia
Per daughter, pt unable to feed herself.
Hold p.o. meds currently
SPL eval
PT OT eval
# hyperlipidemia
DVT ppx: Lovenox SQ
FC
Pt transitioning to hospice
Anticipated Discharge: Within 24 hours
Subjective/Interval History
-
Date of Service: March 30, 2024
Objective Data
-
Labs:
Laboratory Results
03/30/24
06:13
WBC 8.9
Hgb 11.9 L
Hct 34.1 L
Plt Count 168
Sodium 147 H D
Potassium 3.8
Chloride 112 H
Carbon Dioxide 25
BUN 12
Creatinine 0.6
Glucose 112 H
Calcium 8.3 L
Vital Signs:
Vital Signs
Temp Pulse Resp BP Pulse Ox
98.3 F 59 17 120/75 100
03/30/24 07:54 03/30/24 07:54 03/30/24 07:54 03/30/24 07:54 03/30/24 07:54
I&O
03/29/24 03/30/24 03/31/24
06:59 06:59 06:59
Intake Total 1220 / 1220 2129
Balance 1220 / 1220 2129
Review of Systems
-
Unable to obtain full review of systems at this time due to: Dementia
Physical Exam
-
General: No Apparent Distress and Appears Chronically Ill
Respiratory: Clear to Auscultation
Cardiac: Regular Rhythm and S1/S2
GI: Soft and Nontender
Musculoskeletal: No Edema
Neuro: Awake; Negative Alert or Oriented
Psych: Apparent Dementia
--- NOTE | 2024-03-30 14:31 | CM ---
Addendum entered by Berenice Arrington RN 03/30/24 16:17:
Hospice consult ordered . Issac Ford notified of consult and order placed in care port.
Addendum entered by Berenice Arrington RN 03/30/24 14:56:
Spoke with Chayo [phone] from [facility] given .
Original Note:
Patient is from [facility] Dementia unit.She is assisted in all ADLs.Spoke with Tk at bedside. He said she is not eating and would a consult to speak with hospice. notified.She has been using walker and mostly WC lately.Pt NPO.
No VN in past . No SNF hx
Pharmacy [facility]
PCP Dr Dudley
PLAN Will depend on Hospice consult
[2024-03-30] MEDS: HEPARIN SC (15:15)
[2024-03-30 15:55] VITALS: BP 120/86
[2024-03-30] MEDS: ROCEPHIN 1000 MG IV (18:11)
[2024-03-30] MEDS: STERILE WATER FOR INJECTION 10 ML IV (18:11)
[2024-03-30] MEDS: HEPARIN 5000 UNITS SC (19:25)
[2024-03-30 23:36] VITALS: BP 107/71
[2024-03-31] MEDS: VANCOCIN 150 IV (05:12)
[2024-03-31 07:10] VITALS: BP 110/69
--- NOTE | 2024-03-31 08:11 | PN.CDI ---
CDI
- -
CDI:
Physician Documentation Request
Admit Date: 03/28/24 18:07
Dear Doctor Stacey,
Clinical Indicators:
Patient admitted with SUSY and hypernatremia.
03/28 ED Report, 'Se was found to have a fever there today to 100.6 as well as generalized weakness decreased p.o. intake and decreased responsiveness'
03/28 H & P, Chief Complaint: Decreased level of consciousness, decreased responsiveness, fever...Physical Exam: (Lethargic but arousable by verbal stimuli)
03/30 PN, 'Patient pleasantly demented, able to answer questions intermittently'
Sodium trend:
03/28/24 03/29/24 03/30/24
15:36 08:16 06:13
Sodium 162 H* 156 H 147 H D
Based on the above, could you clarify which, if any of the following, is the most likely etiology of the altered mental status.
Baseline dementia with Acute Metabolic Encephalopathy
Baseline Dementia with lethargy only
Other, please specify
Use of terms such as suspected, likely, concern for, or probable (associated with a specific diagnosis that is being evaluated, monitored, or treated as if it exists) are acceptable and can be coded in the inpatient setting, when documented at the
time of discharge.
Thank you,
Lilliam Cary RN BSN
CDI Specialist
available via tiger text
Please use your independent medical judgment in providing your response.
--- NOTE | 2024-03-31 08:25 | PN.CDI ---
CDI
- -
CDI:
Physician Documentation Request
Admit Date: 03/28/24 18:07
Dear Doctor Stacey,
Clinical Indicators:
Patient admitted with SUSY and hypernatremia.
BMI 15.5
03/28 H & P, Physical exam: Cachectic
03/30 RD note/assessment: -Moderate subcutaneous loss over tricep
-Moderate muscle loss over quads and clavicle
-'During visit RD able to visulize protrusion of clavical, quad muscle wasting, temporal
area slightly sunken in and fat loss over tricept. With < 75% estimated needs > 1
month and observed muscle and fat wasting pt meets AND/ASPEN criteria for
moderate protein calorie malnutrition of chronic illness.'
Based on the above information and your assessment, which of the following most accurately represents the patient's nutritional status?
Moderate Protein Calorie Malnutrition
Other, please specify
[place] Criteria (ACP Hospitalist 2017)
2 or more criteria must be present for either
non severe or severe malnutrition
Note that the criteria differs related to the
presence of an acute or chronic illness
Acute Illness Chronic Illness
Energy Intake Non Severe: <75% for >7 days Non Severe: <75% for >1 month
Severe: <50% for >5 days Severe: <75% for >1 month
Weight Loss Non Severe: 1-2% over 1 week Non Severe: 5% over 1 month
5% over 1 month 7.5% over 3 months
7.5% over 3 months 10% over 6 months
1 year N/A 20% over 1 year
Severe: >2% over 1 week Severe: >5% over 1 month
>5% over 1 month >7.5% over 3 months
>7.5% over 3 months >10% over 6 months
1 year N/A >20% over 1 year
Body Fat Non Severe: Mild Decrease Non Severe: Mild Loss
Severe: Moderate Decrease Severe: Severe Loss
Muscle Mass Non Severe: Mild Decrease Non Severe: Mild Loss
Severe: Moderate Decrease Severe: Severe Loss
Fluid Accumulation Non Severe: Mild Accumulation Non Severe: Mild Accumulation
Severe: Moderate to severe Severe: Moderate to severe
accumulation accumulation
Reduced Cigar Inspector Strength Non Severe: N/A Non Severe: N/A
Severe: Measurably reduced Severe: Measurably reduced
Additional criteria that can be used to Determine if Mild or Moderate Malnutrition (Merck Manual 2018)
Mild Moderate Severe
Albumin gm/dl <3.0 gm/dl <2.5 gm/dl <2.0 gm/dl
Pre Albumin mg/dl <15 gm/dl <10 mg/dl <5.0 mg/dl
BMI <18.5 <17 <16
Use of terms such as suspected, likely, concern for, or probable (associated with a specific diagnosis that is being evaluated, monitored, or treated as if it exists) are acceptable and can be coded in the inpatient setting, when documented at the
time of discharge.
Thank you,
Lilliam Cary RN BSN
CDI Specialist
available via tiger text
Please use your independent medical judgment in providing your response.
[2024-03-31] MEDS: HEPARIN 5000 UNITS SC (08:40)
--- NOTE | 2024-03-31 10:05 | W.PN.HOSP.TC ---
Addendum entered and electronically signed by Ezekiel Lockhart MD 03/31/24 22:36:
Attending Addendum-
I saw and evaluated the patient. I reviewed the resident�s note and agree with findings and plan as documented in the resident�s note. Sub: Patient pleasantly demented. Appears comfortable. Seen with daughter present and . Unable to obtain
Full 12 point ROS. Denies Pain Exam: Vitals reviewed in chart GEN-NAD heart RRR lungs clear abd soft LE no edema AAO x 0 skin dry
Plan:
# Poor p.o. intake with hypernatremia, hypotension, SUSY prerenal; clinical severe dehydration
- Sodium level 162 on admission
- poor prog hospice appropriate
- limit lab draws and maintain dignity
- DC IVF
- start comfort care UMESH d/w hospice
# Fever at home, unclear cause currently
COVID/flu negative, Chest x-ray NAD, Procal negative
possible aspiration
UA few bacteria
DC antibiotic ceftriaxone, vancomycin
poor prog
- start comfort care umesh
# Frontotemporal dementia (nonverbal at baseline)
# severe dementia
- pt unable to feed herself as baseline
- extremely poor QOL
-Hold p.o. meds currently
- hospice appropriate start comfort care
# hyperlipidemia, depression
DVT ppx: DC
Code status-DNR/DNI
dispo from [facility]- may be able to DC back on hospice START comfort care
Time spent on coordination of care, review of hospital records/labs, med reconciliation, d/w SW, nursing staff, resident hospice and family - 58 minutes
Original Note:
Today's Communication/Plan
-
Pt transferring to comfort cares
Morphine end of life protocol started
Assessment / Plan
Assessment / Plan
63-year-old female with past medical history of frontotemporal dementia, hyperlipidemia, generalized weakness, decreased responsiveness, decreased oral intake, and fever 100.6 was found hypotensive by EMS. BP responded to fluid. Patient unable to
provide history due to dementia.
A/P:
# Decreased p.o. intake with hypernatremia, Hypotension, SUSY likely prerenal; clinical severe dehydration
Sodium level 162 on admission, yesterday 147, repeat labs not drawn on hospice measures and maintain dignity
BP stable
d/c fluids as pt is switching to comfort measures
Morphine end of life protocol initiated
# Fever at home, unclear cause currently
COVID/flu negative, Chest x-ray NAD, Procal negative
UA few bacteria
Blood culture pre-hardy results no growth
d/c antibiotics ceftriaxone and vanco
# Frontotemporal dementia (nonverbal at baseline)
# severe dementia
Baseline dementia with Acute Metabolic Encephalopathy
Per daughter, pt unable to feed herself.
Hold p.o. meds currently
hospice appropriate comfort feeds with pureed and thin liquid diet
#Moderate protein calorie malnutrition of chronic illness
BMI 15.5
# hyperlipidemia
DVT ppx: Lovenox SQ
FC
Pt transitioning to comfort measures
Anticipated Discharge: Today
Subjective/Interval History
-
Date of Service: March 31, 2024
Objective Data
-
Vital Signs:
Vital Signs
Temp Pulse Resp BP Pulse Ox
97.3 F 69 16 110/69 100
03/31/24 07:10 03/31/24 07:10 03/31/24 07:10 03/31/24 07:10 03/31/24 07:10
I&O
03/30/24 03/31/24 04/01/24
06:59 06:59 06:59
Intake Total 2129
Balance 2129
Review of Systems
-
Unable to obtain full review of systems at this time due to: Dementia
Physical Exam
-
General: Appears Chronically Ill
HEENT: Other (Dry mucous membranes, dry skin)
Respiratory: Clear to Auscultation
Cardiac: Regular Rhythm and S1/S2
GI: Soft and Nontender
Musculoskeletal: No Edema
Neuro: Awake; Negative Alert or Oriented
Psych: Calm and Apparent Dementia
--- NOTE | 2024-03-31 10:52 | PTOTSP ---
SPOKE WITH PROJECT ACCOUNT MANAGER PRIOR TO MEETING WITH FAMILY AND FLOOR RN. PER FLOOR RN, PATIENT'S FAMILY HAS DECIDED ON HOSPICE AND PATIENT IS TO BE TRANSFERRED TO ON COMFORT CARE. WILL DISCHARGE FROM [facility] AT THIS TIME.
--- NOTE | 2024-03-31 11:10 | HOSPNOTE ---
Spoke with family and discussed hospice and the philosophy. The patient will remain in the hospital on comfort measures. I called admissions and patient will be moved to [facility]. I will follow patient daily. Attending aware of plan and case
management.
--- NOTE | 2024-03-31 11:31 | CM ---
Addendum entered by Berenice Arrington, RN 03/31/24 16:11:
Lyudmila at [facility] has no beds. Spoke with Geovanna Marc she is checking on bed at [facility].
LM with Yuli at [facility] .
Original Note:
[facility] evaluated pt .
as per Hospice Pt will change to comfort care with [facility].
Pt will move to private room.
Family is in agreement.
Will notify Michelet .
PLAN Change to [facility] Hospice care
--- NOTE | 2024-03-31 11:40 | PTOTSP ---
ST Consult
Chart reviewed. Pt being transitioned to hospice with comfort feeds. Pt was previously recently consuming primarily protein shakes and soups via straw only. Given this information, I would recommend a comfort feeds diet of pureed solids and thin
liquids and/or a full liquid diet. Skilled [employer]CRAFT ENGINE ASSEMBLER services no longer warranted. AIRCRAFT ENGINE ASSEMBLER to sign off. Please re-consult if needed. Thank you!
[2024-03-31] MEDS: ATIVAN 1 MG IV (14:05)
[2024-03-31] MEDS: NSS (PRESERVATIVE FREE) 0.5 ML IV (14:07)
[2024-03-31] MEDS: MORPHINE SULFATE 2 MG IV (14:07)
[2024-03-31 14:10] VITALS: BP 91/62
--- NOTE | 2024-03-31 14:10 | PTCARENOTE ---
Pt transferred to room 2134 via bed; no personal belongings with pt. Report called to Tatum LAGUNA. Pt condition stable at times of transfer.
--- NOTE | 2024-03-31 14:15 | PTCARENOTE ---
patient transfer from 4E to 2N on comfort care. Pain meds given as ordered. Vs documented. comfort measures in place.
[2024-03-31 19:26] VITALS: BP 91/69
[2024-04-01 07:32] VITALS: BP 109/65
[2024-04-01] MEDS: MORPHINE SULFATE 2 MG IV ×4 (07:51→16:15)
[2024-04-01] MEDS: ATIVAN 1 MG IV ×3 (07:52→16:17)
[2024-04-01] MEDS: NSS (PRESERVATIVE FREE) 0.5 ML IV ×3 (07:53→16:17)
--- NOTE | 2024-04-01 09:23 | W.PN.HOSP.TC ---
Addendum entered and electronically signed by Ezekiel Lockhart MD 04/01/24 23:42:
Attending Addendum-
I saw and evaluated the patient. I reviewed the resident�s note and agree with findings and plan as documented in the resident�s note. Sub: Patient now barely responsive. Appears comfortable. Seen with daughter son and present. Unable to
obtain ROS. Denies Pain Exam: Vitals reviewed in chart GEN-NAD heart RRR lungs clear abd soft LE no edema AAO x 0 skin dry
Plan:
# Poor p.o. intake with hypernatremia, hypotension, SUSY prerenal; clinical severe dehydration
- Sodium level 162 on admission
- poor prog hospice appropriate
- limit lab draws and maintain dignity
- DC IVF
- cont comfort care d/w hospice
- cont morphine gtt
# Fever at home
COVID/flu negative, Chest x-ray NAD, Procal negative
possible aspiration
UA few bacteria
DC'd antibiotic ceftriaxone, vancomycin
poor prog
cont comfort care tomas
# Frontotemporal dementia (nonverbal at baseline)
# severe dementia
- pt unable to feed herself as baseline
- extremely poor QOL
- Hold p.o. meds currently
- hospice appropriate cont comfort care
# hyperlipidemia, depression
DVT ppx: DC
Code status-DNR/DNI
dispo- from [place]- doubt able to DC back, will pass in next 24 hours
Time spent on coordination of care, review of hospital records, med reconciliation, d/w SW, nursing staff, resident hospice and family - 35 minutes
Original Note:
Today's Communication/Plan
-
Continue comfort measures
Assessment / Plan
Assessment / Plan
63-year-old female with past medical history of frontotemporal dementia, hyperlipidemia, generalized weakness, decreased responsiveness, decreased oral intake, and fever 100.6 was found hypotensive by EMS. BP responded to fluid. Patient unable to
provide history due to dementia.
A/P:
# Decreased p.o. intake with hypernatremia, Hypotension, SUSY likely prerenal; clinical severe dehydration
Sodium level 162 on admission, yesterday 147, repeat labs not drawn on hospice measures and maintain dignity
BP stable
Continue comfort measures
Morphine end of life protocol initiated
# Fever at home, unclear cause currently
COVID/flu negative, Chest x-ray NAD, Procal negative
UA few bacteria
Blood culture pre-hardy results no growth
antibiotics d/c. Continue comfort measures
# Frontotemporal dementia (nonverbal at baseline)
# severe dementia
Baseline dementia with Acute Metabolic Encephalopathy
Per daughter, pt unable to feed herself.
Hold p.o. meds currently
hospice appropriate comfort feeds with pureed and thin liquid diet
#Moderate protein calorie malnutrition of chronic illness
BMI 15.5
# hyperlipidemia
DVT ppx: Lovenox SQ
FC
Pt transitioning to comfort measures
Anticipated Discharge: > 48 hours
Subjective/Interval History
-
Date of Service: April 01, 2024
Objective Data
-
Vital Signs:
Vital Signs
Temp Pulse Resp BP Pulse Ox
97.8 F 66 17 109/65 99
04/01/24 07:32 04/01/24 07:32 04/01/24 07:32 04/01/24 07:32 04/01/24 07:32
I&O
03/31/24 04/01/24 04/02/24
06:59 06:59 06:59
Intake Total 920 / 920 300 / 300
Balance 920 / 920 300 / 300
Review of Systems
-
Unable to obtain full review of systems at this time due to: Dementia
Physical Exam
-
General: Appears Chronically Ill and Cachectic
Respiratory: Clear to Auscultation
Cardiac: Regular Rhythm and S1/S2
GI: Soft
Musculoskeletal: No Edema
Skin: Dry
Neuro: Awake; Negative Alert or Oriented
Psych: Apparent Dementia
--- NOTE | 2024-04-01 09:43 | CM ---
Reviewed the chart notes. CM continues to be available to patient/family and is available for needs.
Plan: Comfort care.
[2024-04-01 23:33] VITALS: BP 97/59
[2024-04-02] MEDS: MORPHINE SULFATE 2 MG IV ×7 (03:10→23:40)
[2024-04-02] MEDS: ATIVAN 1 MG IV ×4 (03:12→20:39)
--- NOTE | 2024-04-02 07:37 | W.PN.HOSP.TC ---
Addendum entered and electronically signed by Ezekiel Lockhart MD 04/03/24 00:45:
Attending Addendum-
I saw and evaluated the patient. I reviewed the resident�s note and agree with findings and plan as documented in the resident�s note. Sub: barely responsive. Appears comfortable. Unable to obtain ROS. Denies Pain Exam: Vitals reviewed in chart
GEN-NAD heart RRR lungs clear abd soft LE no edema AAO x 0 skin dry
Plan:
# Poor p.o. intakehypernatremia, hypotension, SUSY; severe dehydration
- Sodium level 162 on admission
- poor prog hospice appropriate
- DC lab draws and maintain dignity
- DC IVF
- cont comfort care d/w hospice
- cont morphine gtt
# Fever
possible aspiration
DC'd antibiotic ceftriaxone, vancomycin
poor prog
cont comfort care
# Frontotemporal dementia (nonverbal at baseline)
- pt unable to feed herself as baseline
- extremely poor QOL
- Hold p.o. meds currently
- hospice appropriate cont comfort care
# hyperlipidemia, depression
DVT ppx: DC
Code status-DNR/DNI
dispo- from [place]- doubt able to DC back, will pass in next 24-48 hours
Time spent on coordination of care, review of hospital records, med reconciliation, d/w SW, nursing staff, resident hospice and family - 35 minutes
Original Note:
Today's Communication/Plan
-
Continue comfort measures
Assessment / Plan
Assessment / Plan
63-year-old female with past medical history of frontotemporal dementia, hyperlipidemia, generalized weakness, decreased responsiveness, decreased oral intake, and fever 100.6 was found hypotensive by EMS. BP responded to fluid. Patient unable to
provide history due to dementia.
A/P:
# Decreased p.o. intake with hypernatremia, Hypotension, SUSY likely prerenal; clinical severe dehydration
Sodium level 162 on admission, yesterday 147, repeat labs not drawn on hospice measures and maintain dignity
BP stable
Continue comfort measures
Morphine end of life protocol initiated
# Fever at home, unclear cause currently
COVID/flu negative, Chest x-ray NAD, Procal negative
UA few bacteria
Blood culture pre-hardy results no growth
antibiotics d/c. Continue comfort measures
# Frontotemporal dementia (nonverbal at baseline)
# severe dementia
Baseline dementia with Acute Metabolic Encephalopathy
Per daughter, pt unable to feed herself.
Hold p.o. meds currently
hospice appropriate comfort feeds with pureed and thin liquid diet
#Moderate protein calorie malnutrition of chronic illness
BMI 15.5
# hyperlipidemia
DVT ppx: Lovenox SQ
FC
Pt transitioned to comfort measures
Anticipated Discharge: > 48 hours
Subjective/Interval History
-
Date of Service: April 02, 2024
Objective Data
-
Vital Signs:
Vital Signs
Temp Pulse Resp BP Pulse Ox
99.8 F 93 14 97/59 98
04/01/24 23:33 04/01/24 23:33 04/01/24 23:33 04/01/24 23:33 04/01/24 23:33
I&O
04/01/24 04/02/24 04/03/24
06:59 06:59 06:59
Intake Total 300 / 300 0 / 0
Balance 300 / 300 0 / 0
Review of Systems
-
Unable to obtain full review of systems at this time due to: Dementia
Physical Exam
-
General: Appears Chronically Ill and Cachectic
Respiratory: Clear to Auscultation
Cardiac: Regular Rhythm and S1/S2
GI: Soft
Musculoskeletal: No Edema
Skin: Dry
Neuro: Sedated; Negative AO x 3
Psych: Apparent Dementia
[2024-04-02 07:50] VITALS: BP 83/58
[2024-04-02] MEDS: ROBINUL 0.2 MG IV (08:57)
--- NOTE | 2024-04-02 11:39 | CM ---
Reviewed the chart notes. CM continues to be available to patient/family.
Plan: Comfort Care.
--- NOTE | 2024-04-02 12:43 | HOSPNOTE ---
Patient remains actively dying. Will continue to support family and staff.
[2024-04-02] MEDS: NSS (PRESERVATIVE FREE) 0.5 ML IV (20:39)
[2024-04-02 23:27] VITALS: BP 96/65
[2024-04-03] MEDS: NSS (PRESERVATIVE FREE) 0.5 ML IV ×4 (02:39→18:07)
[2024-04-03] MEDS: MORPHINE SULFATE 2 MG IV ×8 (02:39→23:59)
[2024-04-03] MEDS: ATIVAN 1 MG IV ×4 (02:39→18:07)
[2024-04-03 08:01] VITALS: BP 89/62
--- NOTE | 2024-04-03 08:35 | W.PN.HOSP.TC ---
Addendum entered and electronically signed by Ezekiel Lockhart MD 04/03/24 22:24:
Attending Addendum-
I saw and evaluated the patient. I reviewed the resident�s note and agree with findings and plan as documented in the resident�s note. Sub: not responsive. Appears comfortable. Unable to obtain ROS. Exam: Vitals reviewed in chart GEN-NAD heart RRR
lungs clear abd soft LE no edema AAO x 0 skin dry
Plan:
# Poor p.o. intake hypernatremia, hypotension, SUSY; severe dehydration
- Sodium level 162 on admission
- poor prog cont CC measures
- cont comfort care d/w hospice
- cont morphine gtt
# Fever
possible aspiration
DC'd antibiotics ceftriaxone, vancomycin
cont comfort care
# Frontotemporal dementia (nonverbal at baseline)
- pt unable to feed herself as baseline
- extremely poor QOL
- hospice appropriate cont comfort care
# hyperlipidemia, depression
DVT ppx: DC
Code status-DNR/DNI
dispo- from [place]- doubt able to DC back, will pass in next 24-48 hours
Time spent on coordination of care, review of hospital records, med reconciliation, d/w SW, nursing staff, resident hospice and family - 36 minutes
Original Note:
Today's Communication/Plan
-
Continue comfort care measures
Assessment / Plan
Assessment / Plan
63-year-old female with past medical history of frontotemporal dementia, hyperlipidemia, generalized weakness, decreased responsiveness, decreased oral intake, and fever 100.6 was found hypotensive by EMS. BP responded to fluid. Patient unable to
provide history due to dementia. Patient's family members are taking shifts being with her. Son's name Dirk, daughter's name Rhiannon.
A/P:
# Decreased p.o. intake with hypernatremia, Hypotension, SUSY likely prerenal; clinical severe dehydration
Sodium level 162 on admission, yesterday 147, repeat labs not drawn on hospice measures and maintain dignity
BP stable
She is not drinking liquids that the nurse is aware of
Continue comfort measures
Morphine end of life protocol initiated
# Fever at home, unclear cause currently
COVID/flu negative, Chest x-ray NAD, Procal negative
UA few bacteria
Blood culture pre-hardy results no growth
antibiotics d/c. Continue comfort measures
# Frontotemporal dementia (nonverbal at baseline)
# severe dementia
Baseline dementia with Acute Metabolic Encephalopathy
Per daughter, pt unable to feed herself.
Hold p.o. meds currently
hospice appropriate comfort feeds with pureed and thin liquid diet
#Moderate protein calorie malnutrition of chronic illness
BMI 15.5
# hyperlipidemia
DVT ppx: Lovenox SQ
FC
Pt transitioned to comfort measures
Anticipated Discharge: > 48 hours
Subjective/Interval History
-
Date of Service: April 03, 2024
Objective Data
-
Vital Signs:
Vital Signs
Temp Pulse Resp BP Pulse Ox
97.7 F 85 12 89/62 96
04/03/24 08:01 04/03/24 08:01 04/03/24 08:01 04/03/24 08:01 04/03/24 08:01
I&O
04/02/24 04/03/24 04/04/24
06:59 06:59 06:59
Intake Total 0 / 0 0 / 0
Balance 0 / 0 0 / 0
Review of Systems
-
Unable to obtain full review of systems at this time due to: Dementia
Physical Exam
-
General: Appears Chronically Ill
Respiratory: Clear to Auscultation
Cardiac: Regular Rhythm and S1/S2
GI: Soft
Skin: Dry
Neuro: Negative AO x 3
Psych: Apparent Dementia
[2024-04-03 19:04] VITALS: BP 66/33
[2024-04-04] MEDS: MORPHINE SULFATE 2 MG IV ×8 (03:15→23:42)
[2024-04-04 08:02] VITALS: BP 111/76
--- NOTE | 2024-04-04 08:31 | W.PN.HOSP.TC ---
Today's Communication/Plan
-
Continue comfort care measures only
Assessment / Plan
Assessment / Plan
63-year-old female with past medical history of frontotemporal dementia, hyperlipidemia, generalized weakness, decreased responsiveness, decreased oral intake, and fever 100.6 was found hypotensive by EMS. BP responded to fluid. Patient unable to
provide history due to dementia. Patient's family members are taking shifts being with her. Son's name Dirk, daughter's name Rhiannon.
A/P:
# Decreased p.o. intake with hypernatremia, Hypotension, SUSY likely prerenal; clinical severe dehydration
Sodium level 162 on admission, yesterday 147, repeat labs not drawn on hospice measures and maintain dignity
BP stable
She is not drinking liquids that the nurse is aware of
Continue comfort measures
Morphine end of life protocol initiated
# Fever at home, unclear cause currently
COVID/flu negative, Chest x-ray NAD, Procal negative
UA few bacteria
Blood culture pre-hardy results no growth
Antibiotics d/c. Continue comfort measures
# Frontotemporal dementia (nonverbal at baseline)
# severe dementia
Baseline dementia with Acute Metabolic Encephalopathy
Per daughter, pt unable to feed herself.
Hold p.o. meds currently
hospice appropriate comfort feeds with pureed and thin liquid diet
#Moderate protein calorie malnutrition of chronic illness
BMI 15.5
#Hyperlipidemia
Pt transitioned to comfort measures
Updated family at bedside 04/04
Total time spent to see the patient on the floor, examine the patient, review data and lab results, discuss treatment plan with patient, nursing staff around 35 minutes.
Physical Exam
General: No acute distress
HEENT: Normocephalic, Atraumatic
Respiratory: Clear to Auscultation bilaterally
Cardiac: Normal S1/S2, Regular Rate and Rhythm
GI: Soft, Nontender, Nondistended, Normal Bowel Sounds
Extremities: No Clubbing, Cyanosis
Anticipated Discharge: 24 - 48 hours
Subjective/Interval History
-
Date of Service: April 04, 2024
Patient resting comfortably.
Objective Data
-
Vital Signs:
Vital Signs
Temp Pulse Resp BP Pulse Ox
98.2 F 97 12 111/76 97
04/04/24 08:02 04/04/24 08:02 04/04/24 08:02 04/04/24 08:02 04/04/24 08:02
I&O
04/03/24 04/04/24 04/05/24
06:59 06:59 06:59
Intake Total 0 / 0
Balance 0 / 0
[2024-04-04] MEDS: ATIVAN 1 MG IV ×3 (11:35→22:34)
[2024-04-04] MEDS: NSS (PRESERVATIVE FREE) 0.5 ML IV ×3 (11:35→22:34)
--- NOTE | 2024-04-04 18:19 | HOSPNOTE ---
Hospice continues to follow for support. Patient remains actively dying. Will continue to support family and staff.
[2024-04-04 19:58] VITALS: BP 93/65
[2024-04-05] MEDS: MORPHINE SULFATE 2 MG IV ×7 (02:54→21:52)
[2024-04-05 07:01] VITALS: BP 99/68
--- NOTE | 2024-04-05 08:07 | W.PN.HOSP.TC ---
Today's Communication/Plan
-
Continue comfort care measures only
Assessment / Plan
Assessment / Plan
63-year-old female with past medical history of frontotemporal dementia, hyperlipidemia, generalized weakness, decreased responsiveness, decreased oral intake, and fever 100.6 was found hypotensive by EMS. BP responded to fluid. Patient unable to
provide history due to dementia. Patient's family members are taking shifts being with her. Son's name Dirk, daughter's name Rhiannon.
A/P:
# Decreased p.o. intake with hypernatremia, Hypotension, SUSY likely prerenal; clinical severe dehydration
Sodium level 162 on admission, yesterday 147, repeat labs not drawn on hospice measures and maintain dignity
BP stable
She is not drinking liquids that the nurse is aware of
Continue comfort measures
Morphine end of life protocol initiated
# Fever at home, unclear cause currently
COVID/flu negative, Chest x-ray NAD, Procal negative
UA few bacteria
Blood culture pre-hardy results no growth
Antibiotics d/c. Continue comfort measures
# Frontotemporal dementia (nonverbal at baseline)
# severe dementia
Baseline dementia with Acute Metabolic Encephalopathy
Per daughter, pt unable to feed herself.
Hold p.o. meds currently
hospice appropriate comfort feeds with pureed and thin liquid diet
#Moderate protein calorie malnutrition of chronic illness
BMI 15.5
#Hyperlipidemia
Pt transitioned to comfort measures
Updated family at bedside 04/05
Physical Exam
General: No acute distress
HEENT: Normocephalic, Atraumatic
Respiratory: Clear to Auscultation bilaterally
Cardiac: Normal S1/S2, Regular Rate and Rhythm
GI: Soft, Nontender, Nondistended, Normal Bowel Sounds
Extremities: No Clubbing, Cyanosis
Anticipated Discharge: Within 24 hours
Subjective/Interval History
-
Date of Service: April 05, 2024
Patient resting comfortably.
Objective Data
-
Vital Signs:
Vital Signs
Temp Pulse Resp BP Pulse Ox
97.8 F 92 18 93/65 98
04/04/24 19:58 04/04/24 19:58 04/04/24 19:58 04/04/24 19:58 04/04/24 19:58
[2024-04-05] MEDS: ATIVAN 1 MG IV ×2 (11:42→19:45)
--- NOTE | 2024-04-05 14:54 | HOSPNOTE ---
Hospice continues to follow for support. Patient is on comfort and is currently comfortable without any unmanaged symptoms. Patient is actively dying. Family is bedside. Spoke to primary nurse who also confirmed that patient is comfortable.
Emotional support provided to family.
[2024-04-05 23:26] VITALS: BP 114/70
[2024-04-06] MEDS: MORPHINE SULFATE 2 MG IV ×5 (01:22→11:55)
[2024-04-06 07:07] VITALS: BP 107/71
[2024-04-06] MEDS: NSS (PRESERVATIVE FREE) 0.5 ML IV ×3 (08:25→20:07)
[2024-04-06] MEDS: ATIVAN 1 MG IV ×3 (08:25→20:08)
--- NOTE | 2024-04-06 09:45 | W.PN.HOSP.TC ---
Addendum entered and electronically signed by Ezekiel Lockhart MD 04/06/24 23:29:
Attending Addendum-
I saw and evaluated the patient. I reviewed the resident�s note and agree with findings and plan as documented in the resident�s note. Sub: not responsive. Appears comfortable. Unable to obtain ROS. Seen with family. 'she is still in pain at times'
Exam: Vitals reviewed in chart GEN-comfortable heart RRR lungs clear abd soft LE no edema Neuro unresponsive
Plan:
# Dehydration/Dysphagia/hypernatremia/hypotension/SUSY
- Sodium level 162 on admission
- cont comfort care d/w hospice
- maintain dignity
- begin step 2 morphine protocol
# Fever
aspiration
DC'd antibiotics ceftriaxone, vancomycin
cont comfort care
# Frontotemporal dementia (nonverbal at baseline)
- pt unable to feed herself as baseline
- extremely poor QOL
- hospice appropriate cont comfort care
# hyperlipidemia, depression
DVT ppx: none
Code status-DNR/DNI
dispo- from [place]- doubt able to DC back, will pass in next 24-48 hours
Time spent on coordination of care, review of hospital records, med reconciliation, d/w SW, nursing staff, resident hospice and family - 35 minutes
Original Note:
Today's Communication/Plan
-
Continue comfort measures
Assessment / Plan
Assessment / Plan
63-year-old female with past medical history of frontotemporal dementia, hyperlipidemia, generalized weakness, decreased responsiveness, decreased oral intake, and fever 100.6 was found hypotensive by EMS. BP responded to fluid. Patient unable to
provide history due to dementia. Patient's family members are taking shifts being with her. Son's name Drik, daughter's name Rhiannon.
A/P:
# Decreased p.o. intake with hypernatremia, Hypotension, SUSY likely prerenal; clinical severe dehydration
Sodium level 162 on admission, yesterday 147, repeat labs not drawn on hospice measures and maintain dignity
BP stable
She is not drinking liquids that the nurse is aware of
Continue comfort measures
daughter requested scheduled morphine doses instead of PRN
Morphine end of life protocol initiated
# Fever at home, unclear cause currently
COVID/flu negative, Chest x-ray NAD, Procal negative
UA few bacteria
Blood culture pre-hardy results no growth
Antibiotics d/c. Continue comfort measures
# Frontotemporal dementia (nonverbal at baseline)
# severe dementia
Baseline dementia with Acute Metabolic Encephalopathy
Per daughter, pt unable to feed herself.
Hold p.o. meds currently
hospice appropriate comfort feeds with pureed and thin liquid diet
#Moderate protein calorie malnutrition of chronic illness
BMI 15.5
#Hyperlipidemia
Pt transitioned to comfort measures
Updated family at bedside 04/05
Physical Exam
General: No acute distress
HEENT: Normocephalic, Atraumatic
Respiratory: Clear to Auscultation bilaterally
Cardiac: Normal S1/S2, Regular Rate and Rhythm
GI: Soft, Nontender, Nondistended, Normal Bowel Sounds
Extremities: No Clubbing, Cyanosis
Anticipated Discharge: Within 24 hours
Subjective/Interval History
-
Date of Service: April 06, 2024
Objective Data
-
Vital Signs:
Vital Signs
Temp Pulse Resp BP Pulse Ox
98.4 F 101 16 107/71 96
04/06/24 07:07 04/06/24 07:07 04/06/24 07:07 04/06/24 07:07 04/06/24 07:07
Review of Systems
-
Unable to obtain full review of systems at this time due to: Dementia
Physical Exam
-
General: Appears Chronically Ill
HEENT: Normocephalic
Respiratory: Clear to Auscultation
Cardiac: Regular Rhythm and S1/S2
GI: Soft
Musculoskeletal: No Edema
Skin: Dry
Neuro: Negative AO x 3
Psych: Apparent Dementia
--- NOTE | 2024-04-06 10:34 | CM ---
Reviewed the chart notes. Patient remains on comfort care.
[2024-04-06] MEDS: ROBINUL 0.2 MG IV (10:56)
[2024-04-06] MEDS: MORPHINE 100 IV (12:37)
[2024-04-06 19:48] VITALS: BP 103/68
[2024-04-07] MEDS: ATIVAN 1 MG IV ×2 (04:34→20:59)
[2024-04-07] MEDS: NSS (PRESERVATIVE FREE) 0.5 ML IV ×2 (04:34→20:59)
[2024-04-07 08:00] VITALS: BP 91/69
--- NOTE | 2024-04-07 10:19 | W.PN.HOSP.TC ---
Addendum entered and electronically signed by Ezekiel Lockhart MD 04/08/24 00:50:
Attending Addendum-
I saw and evaluated the patient. I reviewed the resident�s note and agree with findings and plan as documented in the resident�s note. Sub: not responsive. Appears comfortable. Unable to obtain ROS. Seen with family. 'we're just waiting' Exam:
Vitals reviewed in chart GEN-comfortable heart RRR lungs clear abd soft LE no edema Neuro unresponsive
Plan:
# Dehydration/Dysphagia/hypernatremia/hypotension/SUSY
- Sodium level 162 on admission
- cont comfort care d/w hospice
- maintain dignity
- cont step 2 morphine protocol
# Fever
aspiration
DC'd antibiotics ceftriaxone, vancomycin
cont comfort care
# Frontotemporal dementia (nonverbal at baseline)
- pt unable to feed herself as baseline
- extremely poor QOL
- hospice appropriate cont comfort care
# hyperlipidemia, depression
DVT ppx: none
Code status-DNR/DNI
dispo- from [place]- doubt able to DC back, will pass in next 24-48 hours
Time spent on coordination of care, review of hospital records, med reconciliation, d/w SW, nursing staff, resident hospice and family - 35 minutes
Original Note:
Today's Communication/Plan
-
Continue comfort measures. Likely to pass in the next 24-48 hours
Assessment / Plan
Assessment / Plan
63-year-old female with past medical history of frontotemporal dementia, hyperlipidemia, generalized weakness, decreased responsiveness, decreased oral intake, and fever 100.6 was found hypotensive by EMS. BP responded to fluid. Patient unable to
provide history due to dementia. Patient's family members are taking shifts being with her. Son's name Dirk, daughter's name Rhiannon.
A/P:
# Decreased p.o. intake with hypernatremia, Hypotension, SUSY likely prerenal; clinical severe dehydration
Sodium level 162 on admission
She is not drinking liquids that the nurse is aware of
Continue comfort measures
Continue step 2 morphine protocol per daughter/family wishes
Morphine end of life protocol initiated
# Fever at home, unclear cause currently
Antibiotics d/c
Continue comfort measures
# Frontotemporal dementia (nonverbal at baseline)
# severe dementia
Baseline dementia with Acute Metabolic Encephalopathy
Per daughter, pt unable to feed herself.
hospice appropriate comfort feeds with pureed and thin liquid diet
#Moderate protein calorie malnutrition of chronic illness
BMI 15.5
#Hyperlipidemia
Pt transitioned to comfort measures
Anticipated Discharge: 24 - 48 hours
Subjective/Interval History
-
Date of Service: April 07, 2024
Objective Data
-
Vital Signs:
Vital Signs
Temp Pulse Resp BP Pulse Ox
98.5 F 93 14 91/69 94
04/07/24 08:00 04/07/24 08:00 04/07/24 08:00 04/07/24 08:00 04/07/24 08:00
I&O
04/06/24 04/07/24 04/08/24
06:59 06:59 06:59
Intake Total 0 / 0
Output Total 0 / 0
Balance 0 / 0
Review of Systems
-
Unable to obtain full review of systems at this time due to: Dementia
Physical Exam
-
General: Appears Chronically Ill
Respiratory: Clear to Auscultation
Cardiac: Regular Rhythm and S1/S2
GI: Soft
Musculoskeletal: No Edema
Psych: Apparent Dementia
--- NOTE | 2024-04-07 18:30 | PTCARENOTE ---
Comfort and safety measures maintained throughout shift. Continues on Step 2 of Morphine drip with no breakthrough doses needed this shift. Family at bedside. Incontinent of urine x1. Repositioned to promote comfort.
[2024-04-07 20:33] VITALS: BP 112/77
[2024-04-08] MEDS: ATIVAN 1 MG IV ×2 (04:22→20:48)
[2024-04-08] MEDS: NSS (PRESERVATIVE FREE) 0.5 ML IV ×2 (04:22→20:49)
[2024-04-08 07:32] VITALS: BP 101/71
--- NOTE | 2024-04-08 09:24 | W.PN.HOSP.TC ---
Addendum entered and electronically signed by Ezekiel Lockhart MD 04/08/24 23:28:
Attending Addendum-
I saw and evaluated the patient. I reviewed the resident�s note and agree with findings and plan as documented in the resident�s note. Sub: not responsive. no distress. Unable to obtain ROS. Seen with family. Exam: Vitals reviewed in chart
GEN-comfortable heart RRR lungs clear abd soft LE no edema Neuro unresponsive
Plan:
# Dehydration/Dysphagia/hypernatremia/hypotension/SUSY
- Sodium level 162 on admission
- cont comfort care d/w hospice
- maintain dignity
- cont step 2 morphine protocol
# Fever
aspiration
DC'd antibiotics ceftriaxone, vancomycin
cont comfort care
# Frontotemporal dementia (nonverbal at baseline)
- pt unable to feed herself as baseline
- extremely poor QOL
- hospice appropriate cont comfort care
# hyperlipidemia, depression
DVT ppx: none
Code status-DNR/DNI
dispo- from [place]- doubt able to DC back, will pass in next 24-48 hours
Time spent on coordination of care, review of hospital records, med reconciliation, d/w SW, nursing staff, resident and family - 25 minutes
Original Note:
Today's Communication/Plan
-
Continue comfort measures
Assessment / Plan
Assessment / Plan
63-year-old female with past medical history of frontotemporal dementia, hyperlipidemia, generalized weakness, decreased responsiveness, decreased oral intake, and fever 100.6 was found hypotensive by EMS. BP responded to fluid. Patient unable to
provide history due to dementia. Patient's family members are taking shifts being with her. Son's name Dirk, daughter's name Rhiannon.
A/P:
# Decreased p.o. intake with hypernatremia, Hypotension, SUSY likely prerenal; clinical severe dehydration
Sodium level 162 on admission
She is not drinking liquids that the nurse is aware of
Continue comfort measures
Daughter says pt comfortable on 2mg morphine drip. Continue
Morphine end of life protocol initiated
# Fever at home, unclear cause currently
Antibiotics d/c
Continue comfort measures
# Frontotemporal dementia (nonverbal at baseline)
# severe dementia
Baseline dementia with Acute Metabolic Encephalopathy
Per daughter, pt unable to feed herself.
hospice appropriate comfort feeds with pureed and thin liquid diet
#Moderate protein calorie malnutrition of chronic illness
BMI 15.5
#Hyperlipidemia
Pt transitioned to comfort measures
Anticipated Discharge: 24 - 48 hours
Subjective/Interval History
-
Date of Service: April 08, 2024
Objective Data
-
Vital Signs:
Vital Signs
Temp Pulse Resp BP Pulse Ox
99.2 F 95 18 101/71 99
04/08/24 07:32 04/08/24 07:32 04/08/24 07:32 04/08/24 07:32 04/08/24 07:32
I&O
04/07/24 04/08/24 04/09/24
06:59 06:59 06:59
Intake Total 0 / 0 0 / 0
Output Total 0 / 0
Balance 0 / 0 0 / 0
Review of Systems
-
Unable to obtain full review of systems at this time due to: Dementia
Physical Exam
-
General: Appears Chronically Ill
Respiratory: Clear to Auscultation
Cardiac: Regular Rhythm and S1/S2
GI: Soft
Skin: Dry
Neuro: Negative AO x 3
Psych: Apparent Dementia
[2024-04-08] MEDS: MORPHINE 100 IV (10:11)
[2024-04-08] MEDS: MORPHINE SULFATE 2 MG IV ×2 (11:49→18:10)
--- NOTE | 2024-04-08 13:05 | HOSPNOTE ---
Patient continues to be actively dying, Patient was washed and repositioned and mouth care completed. Emotional support given to family. Continue to follow patient she remains on comfort care.
--- NOTE | 2024-04-08 14:01 | CM ---
Reviewed the chart notes. Patient remains on comfort care. CM continues to be available to patient/family.
--- NOTE | 2024-04-08 17:03 | CM ---
GREGORY Vaca CM from [facility] offering assistance with d/c planning.
phone # [phone] x [phone].
[2024-04-08 19:11] VITALS: BP 106/76
[2024-04-09] MEDS: ATIVAN 1 MG IV (04:03)
[2024-04-09] MEDS: NSS (PRESERVATIVE FREE) 0.5 ML IV (04:03)
[2024-04-09 07:24] VITALS: BP 105/74
--- NOTE | 2024-04-09 09:21 | CM ---
Reviewed the chart notes. Patient remains on comfort care.
--- NOTE | 2024-04-09 09:49 | W.PN.HOSP.TC ---
Addendum entered and electronically signed by Ezekiel Lockhart MD 04/10/24 00:04:
Attending Addendum-
I saw and evaluated the patient. I reviewed the resident�s note and agree with findings and plan as documented in the resident�s note. Sub: not responsive. no distress. Unable to obtain ROS. Seen with family. 'she was in pain earlier' Exam: Vitals
reviewed in chart GEN-comfortable heart RRR lungs clear abd soft LE no edema Neuro unresponsive
Plan:
# Dehydration/Dysphagia/hypernatremia/hypotension/SUSY
- Sodium level 162 on admission
- cont comfort care d/w hospice
- maintain dignity
- advance to step 3 morphine protocol
# Fever
aspiration
DC'd antibiotics ceftriaxone, vancomycin
cont comfort care
# Frontotemporal dementia (nonverbal at baseline)
- pt unable to feed herself as baseline
- hospice appropriate cont comfort care
# hyperlipidemia, depression
DVT ppx: none
Code status-DNR/DNI
dispo- from [place]-will pass in next 24-48 hours
Time spent on coordination of care, review of hospital records, med reconciliation, d/w SW, nursing staff, resident pall care and family - 35 minutes
Original Note:
Today's Communication/Plan
-
Continue comfort measures
Assessment / Plan
Assessment / Plan
63-year-old female with past medical history of frontotemporal dementia, hyperlipidemia, generalized weakness, decreased responsiveness, decreased oral intake, and fever 100.6 was found hypotensive by EMS. BP responded to fluid. Patient unable to
provide history due to dementia. Patient's family members are taking shifts being with her. Son's name Dirk, daughter's name Rhiannon.
A/P:
# Decreased p.o. intake with hypernatremia, Hypotension, SUSY likely prerenal; clinical severe dehydration
Sodium level 162 on admission
She is not drinking liquids that the nurse is aware of
Continue comfort measures
Continues to be comfortable on 2mg morphine drip
Morphine end of life protocol initiated
# Fever at home, unclear cause currently
Antibiotics d/c
Continue comfort measures
# Frontotemporal dementia (nonverbal at baseline)
# severe dementia
Baseline dementia with Acute Metabolic Encephalopathy
Per daughter, pt unable to feed herself.
hospice appropriate comfort feeds with pureed and thin liquid diet
#Moderate protein calorie malnutrition of chronic illness
BMI 15.5
#Hyperlipidemia
Pt transitioned to comfort measures
Anticipated Discharge: Within 24 hours
Subjective/Interval History
-
Date of Service: April 09, 2024
Objective Data
-
Vital Signs:
Vital Signs
Temp Pulse Resp BP Pulse Ox
97.5 F 99 20 105/74 95
04/09/24 07:24 04/09/24 07:24 04/09/24 07:24 04/09/24 07:24 04/09/24 07:24
I&O
04/08/24 04/09/24 04/10/24
06:59 06:59 06:59
Intake Total 0 0
Balance 0 0
Review of Systems
-
Unable to obtain full review of systems at this time due to: Dementia
Physical Exam
-
General: Appears Chronically Ill and Cachectic
Respiratory: Clear to Auscultation
Cardiac: Regular Rhythm and S1/S2
GI: Soft
Musculoskeletal: No Edema
Neuro: Negative AO x 3
Psych: Apparent Dementia
--- NOTE | 2024-04-09 11:47 | HOSPNOTE ---
Patient continues to be actively dying, support provided to family and staff. Will continue to follow and assist.
[2024-04-09] MEDS: MORPHINE SULFATE 4 MG IV ×2 (13:39→17:28)
[2024-04-09 19:26] VITALS: BP 92/64
[2024-04-09] MEDS: MORPHINE 100 IV (19:34)
--- NOTE | 2024-04-10 05:37 | PTCARENOTE ---
pt remains comfortable on morphine gtt- family at bedside- no major changes
[2024-04-10 07:40] VITALS: BP 91/62
[2024-04-10] MEDS: ATIVAN 1 MG IV ×2 (09:41→17:22)
[2024-04-10] MEDS: MORPHINE SULFATE 4 MG IV ×3 (09:42→17:22)
[2024-04-10] MEDS: NSS (PRESERVATIVE FREE) 0.5 ML IV ×2 (09:42→17:30)
--- NOTE | 2024-04-10 10:02 | W.PN.HOSP.TC ---
Addendum entered and electronically signed by Ezekiel Lockhart MD 04/10/24 23:07:
Attending Addendum-
I saw and evaluated the patient. I reviewed the resident�s note and agree with findings and plan as documented in the resident�s note. Sub: not responsive. no distress. Unable to obtain ROS. Exam: Vitals reviewed in chart GEN-comfortable heart RRR
lungs clear abd soft LE no edema Neuro unresponsive
Plan:
# Dehydration/Dysphagia/hypernatremia/hypotension/SUSY
- Sodium level 162 on admission
- cont comfort care d/w hospice
- maintain dignity
- advance to step 4 morphine protocol
# Frontotemporal dementia (nonverbal at baseline)
- hospice appropriate cont comfort care
# hyperlipidemia, depression
DVT ppx: none
Code status-DNR/DNI
dispo- from [place]-will pass in next 24-48 hours
Time spent on coordination of care, review of hospital records, med reconciliation, d/w SW, nursing staff, resident pall care and family - 36 minutes
Original Note:
Today's Communication/Plan
-
Continue morphine drip per comfort measures
Assessment / Plan
Assessment / Plan
63-year-old female with past medical history of frontotemporal dementia, hyperlipidemia, generalized weakness, decreased responsiveness, decreased oral intake, and fever 100.6 was found hypotensive by EMS. BP responded to fluid. Patient unable to
provide history due to dementia. Patient's family members are taking shifts being with her. Son's name Dirk, daughter's name Rhiannon.
A/P:
# Decreased p.o. intake with hypernatremia, Hypotension, SUSY likely prerenal; clinical severe dehydration
Sodium level 162 on admission
She is not drinking liquids that the nurse is aware of
Continue comfort measures
Morphine drip increased to step 4
Morphine end of life protocol initiated
# Fever at home, unclear cause currently
Antibiotics d/c
Continue comfort measures
# Frontotemporal dementia (nonverbal at baseline)
# severe dementia
Baseline dementia with Acute Metabolic Encephalopathy
Per daughter, pt unable to feed herself.
hospice appropriate comfort feeds with pureed and thin liquid diet
#Moderate protein calorie malnutrition of chronic illness
BMI 15.5
#Hyperlipidemia
Pt transitioned to comfort measures
Anticipated Discharge: Within 24 hours
Subjective/Interval History
-
Date of Service: April 10, 2024
Objective Data
-
Vital Signs:
Vital Signs
Temp Pulse Resp BP Pulse Ox
98.0 F 91 12 91/62 94
04/10/24 07:40 04/10/24 07:40 04/10/24 07:40 04/10/24 07:40 04/10/24 07:40
I&O
04/09/24 04/10/24 04/11/24
06:59 06:59 06:59
Intake Total
Balance
Review of Systems
-
Unable to obtain full review of systems at this time due to: Dementia
Physical Exam
-
General: Appears Chronically Ill and Cachectic
HEENT: Normocephalic
Respiratory: Clear to Auscultation
Cardiac: Regular Rhythm and S1/S2
GI: Soft
Musculoskeletal: No Edema
Psych: Apparent Dementia
--- NOTE | 2024-04-10 10:15 | CM ---
Reviewed the chart notes. Morphine gtt continues.
Plan: Comfort Care.
[2024-04-10] MEDS: MORPHINE 100 IV (19:33)
[2024-04-10 19:42] VITALS: BP 89/67
[2024-04-10] MEDS: MORPHINE SULFATE 6 MG IV (21:23)
[2024-04-11 07:40] VITALS: BP 92/64
--- NOTE | 2024-04-11 09:08 | W.PN.HOSP.TC ---
Today's Communication/Plan
-
Continue comfort measures. Will likely pass over the weekend
Assessment / Plan
Assessment / Plan
63-year-old female with past medical history of frontotemporal dementia, hyperlipidemia, generalized weakness, decreased responsiveness, decreased oral intake, and fever 100.6 was found hypotensive by EMS. BP responded to fluid. Patient unable to
provide history due to dementia. Patient's family members are taking shifts being with her. Son's name Dirk, daughter's name Rhiannon.
A/P:
# Decreased p.o. intake with hypernatremia, Hypotension, SUSY likely prerenal; clinical severe dehydration
Sodium level 162 on admission
She is not drinking liquids that the nurse is aware of
Continue comfort measures
Morphine drip increased to step 6 overnight
Family continues at bedside
Morphine end of life protocol initiated
# Fever at home, unclear cause currently
Antibiotics d/c
Continue comfort measures
# Frontotemporal dementia (nonverbal at baseline)
# severe dementia
Baseline dementia with Acute Metabolic Encephalopathy
Per daughter, pt unable to feed herself.
hospice appropriate comfort feeds with pureed and thin liquid diet
#Moderate protein calorie malnutrition of chronic illness
BMI 15.5
#Hyperlipidemia
Pt transitioned to comfort measures
Anticipated Discharge: 24 - 48 hours
Subjective/Interval History
-
Date of Service: April 11, 2024
Objective Data
-
Vital Signs:
Vital Signs
Temp Pulse Resp BP Pulse Ox
98.3 F 98 10 92/64 90
04/11/24 07:40 04/11/24 07:40 04/11/24 07:40 04/11/24 07:40 04/11/24 08:42
I&O
04/10/24 04/11/24 04/12/24
06:59 06:59 05:59
Intake Total 72 / 72
Balance
Review of Systems
-
Unable to obtain full review of systems at this time due to: Dementia
Physical Exam
-
General: Appears Chronically Ill and Cachectic
Respiratory: Clear to Auscultation
Cardiac: Regular Rhythm and S1/S2
GI: Soft
Skin: Dry
Neuro: Negative AO x 3
Psych: Apparent Dementia
[2024-04-11] MEDS: MORPHINE 100 IV (09:18)
[2024-04-11 18:59] VITALS: BP 93/61
--- NOTE | 2024-04-11 22:41 | PTCARENOTE ---
Patient turned and change, vital signs remain stable. Pt appears to be comfortable and does not exhibit S/S of pain or respiratory symptoms. Pt continues on morphine drip at 6mg/hr. No family at bedside currently.
[2024-04-12] MEDS: MORPHINE 100 IV ×2 (02:33→15:58)
[2024-04-12 07:43] VITALS: BP 88/60
--- NOTE | 2024-04-12 09:04 | W.PN.HOSP.TC ---
Today's Communication/Plan
-
Continue comfort measures
Assessment / Plan
Assessment / Plan
63-year-old female with past medical history of frontotemporal dementia, hyperlipidemia, generalized weakness, decreased responsiveness, decreased oral intake, and fever 100.6 was found hypotensive by EMS. BP responded to fluid. Patient unable to
provide history due to dementia. Patient's family members are taking shifts being with her. Son's name Dirk, daughter's name Rhiannon.
A/P:
# Decreased p.o. intake with hypernatremia, Hypotension, SUSY likely prerenal; clinical severe dehydration
Sodium level 162 on admission
She is not drinking liquids that the nurse is aware of
Continue comfort measures
Morphine drip step 6 continue
Family continues at bedside
Morphine end of life protocol initiated
# Fever at home, unclear cause currently
Antibiotics d/c
Continue comfort measures
# Frontotemporal dementia (nonverbal at baseline)
# severe dementia
Baseline dementia with Acute Metabolic Encephalopathy
Per daughter, pt unable to feed herself.
hospice appropriate comfort feeds with pureed and thin liquid diet
#Moderate protein calorie malnutrition of chronic illness
BMI 15.5
#Hyperlipidemia
Pt transitioned to comfort measures
Anticipated Discharge: 24 - 48 hours
Subjective/Interval History
-
Date of Service: April 12, 2024
Objective Data
-
Vital Signs:
Vital Signs
Temp Pulse Resp BP Pulse Ox
98.1 F 88 10 88/60 92
04/12/24 07:43 04/12/24 07:43 04/12/24 07:43 04/12/24 07:43 04/12/24 07:43
I&O
04/11/24 04/12/24 04/13/24
07:59 06:59 06:59
Intake Total
Balance
Review of Systems
-
Unable to obtain full review of systems at this time due to: Dementia
Physical Exam
-
General: Appears Chronically Ill
Respiratory: Clear to Auscultation
Cardiac: Regular Rhythm and S1/S2
GI: Soft
Skin: Dry
Psych: Apparent Dementia
[2024-04-12] MEDS: ATIVAN 1 MG IV (12:42)
[2024-04-12] MEDS: NSS (PRESERVATIVE FREE) 0.5 ML IV (12:43)
[2024-04-12] MEDS: MORPHINE SULFATE 6 MG IV (12:43)
--- NOTE | 2024-04-12 14:00 | PTCARENOTE ---
pt remains on step 4 gtt at this time. pt family remains at bedside. this nurse and pct turning patient as tolerated. prn morphine and ativan given prior to bed bath and turns this afternoon. pt more relaxed at this time.
[2024-04-12 19:05] VITALS: BP 99/70
[2024-04-13] MEDS: MORPHINE SULFATE 6 MG IV ×4 (00:22→23:21)
[2024-04-13] MEDS: MORPHINE 100 IV ×2 (06:27→19:54)
[2024-04-13 08:00] VITALS: BP 94/62
--- NOTE | 2024-04-13 08:39 | W.PN.HOSP.TC ---
Addendum entered and electronically signed by Levar Mccormack MD 04/14/24 09:50:
continue comofrot care
provide dignity and hygiene
Original Note:
Today's Communication/Plan
-
Continue comfort measures
Assessment / Plan
Assessment / Plan
63-year-old female with past medical history of frontotemporal dementia, hyperlipidemia, generalized weakness, decreased responsiveness, decreased oral intake, and fever 100.6 was found hypotensive by EMS. BP responded to fluid. Patient unable to
provide history due to dementia. Patient's family members are taking shifts being with her. Son's name Dirk, daughter's name Rhiannon.
A/P:
# Decreased p.o. intake with hypernatremia, Hypotension, SUSY likely prerenal; clinical severe dehydration
Sodium level 162 on admission
She is not drinking liquids that the nurse is aware of
Continue comfort measures
Morphine drip step 4 continue (6mg morhpine ggt)
Family continues at bedside
Morphine end of life protocol initiated
Spoke to director of special events
# Fever at home, unclear cause currently
Antibiotics d/c
Continue comfort measures
# Frontotemporal dementia (nonverbal at baseline)
# severe dementia
Baseline dementia with Acute Metabolic Encephalopathy
Per daughter, pt unable to feed herself.
hospice appropriate comfort feeds with pureed and thin liquid diet
#Moderate protein calorie malnutrition of chronic illness
BMI 15.5
#Hyperlipidemia
Pt transitioned to comfort measures
Anticipated Discharge: 24 - 48 hours
Subjective/Interval History
-
Date of Service: April 13, 2024
Objective Data
-
Vital Signs:
Vital Signs
Temp Pulse Resp BP Pulse Ox
97.3 F 93 19 94/62 90
04/13/24 08:00 04/13/24 08:00 04/13/24 08:00 04/13/24 08:00 04/13/24 08:00
I&O
04/12/24 04/13/24 04/14/24
06:59 06:59 06:59
Intake Total
Balance
Review of Systems
-
Unable to obtain full review of systems at this time due to: Dementia
Physical Exam
-
General: Appears Chronically Ill
Respiratory: Clear to Auscultation
Cardiac: Regular Rhythm and S1/S2
GI: Soft
Musculoskeletal: No Edema
Skin: Dry
Neuro: Negative AO x 3
Psych: Apparent Dementia
--- NOTE | 2024-04-13 09:23 | CM ---
Reviewed the chart notes. Morphine gtt continues. CM continues to be available to patient/family.
Plan: Remains on comfort care.
[2024-04-13] MEDS: ATIVAN 1 MG IV ×2 (16:36→21:51)
[2024-04-13] MEDS: NSS (PRESERVATIVE FREE) 0.5 ML IV ×2 (16:36→21:51)
[2024-04-13 19:04] VITALS: BP 92/64
[2024-04-14 07:35] VITALS: BP 89/60
--- NOTE | 2024-04-14 08:38 | W.PN.HOSP.TC ---
Addendum entered and electronically signed by Levar Mccormack MD 04/14/24 09:50:
continue comofrot care
provide dignity and hygiene
Original Note:
Today's Communication/Plan
-
Continue comfort measures
Assessment / Plan
Assessment / Plan
63-year-old female with past medical history of frontotemporal dementia, hyperlipidemia, generalized weakness, decreased responsiveness, decreased oral intake, and fever 100.6 was found hypotensive by EMS. BP responded to fluid. Patient unable to
provide history due to dementia. Patient's family members are taking shifts being with her. Son's name Dirk, daughter's name Rhiannon.
A/P:
# Decreased p.o. intake with hypernatremia, Hypotension, SUSY likely prerenal; clinical severe dehydration
Sodium level 162 on admission
She is not drinking liquids that the nurse is aware of
Continue comfort measures
Morphine drip step 4 continue. Maintain dignity.
Family continues at bedside
Morphine end of life protocol initiated
# Fever at home, unclear cause currently
Antibiotics d/c
Continue comfort measures
# Frontotemporal dementia (nonverbal at baseline)
# severe dementia
Baseline dementia with Acute Metabolic Encephalopathy
Per daughter, pt unable to feed herself.
hospice appropriate comfort feeds with pureed and thin liquid diet
#Moderate protein calorie malnutrition of chronic illness
BMI 15.5
#Hyperlipidemia
Pt transitioned to comfort measures
Anticipated Discharge: 24 - 48 hours
Subjective/Interval History
-
Date of Service: April 14, 2024
Objective Data
-
Vital Signs:
Vital Signs
Temp Pulse Resp BP Pulse Ox
97.8 F 99 12 89/60 91
04/14/24 07:35 04/14/24 07:35 04/14/24 07:35 04/14/24 07:35 04/14/24 07:35
I&O
04/13/24 04/14/24 04/15/24
06:59 06:59 06:59
Intake Total
Balance
Review of Systems
-
Unable to obtain full review of systems at this time due to: Dementia
Physical Exam
-
Respiratory: Clear to Auscultation
Cardiac: Regular Rhythm and S1/S2
GI: Soft
Musculoskeletal: No Edema
Neuro: Negative AO x 3
Psych: Apparent Dementia
--- NOTE | 2024-04-14 10:07 | CM ---
Reviewed the chart notes. Comfort care continues.
[2024-04-14] MEDS: MORPHINE 100 IV (10:57)
[2024-04-14] MEDS: ATIVAN 1 MG IV (12:27)
[2024-04-14] MEDS: NSS (PRESERVATIVE FREE) 0.5 ML IV (12:28)
[2024-04-14] MEDS: MORPHINE SULFATE 6 MG IV ×2 (12:28→16:01)
--- NOTE | 2024-04-14 16:32 | PTCARENOTE ---
pt remains on step 4 gtt. increase in body tensity with turns. prn morphine given per breakthrough scale as needed. see MAR for proper documentation. silicone foam on sacrum and R elbow remain intact. continuing with q2t as tolerated.
[2024-04-14 23:50] VITALS: BP 84/56
[2024-04-15] MEDS: MORPHINE 100 IV ×2 (01:44→15:09)
[2024-04-15 07:45] VITALS: BP 90/64
--- NOTE | 2024-04-15 10:45 | W.PN.HOSP.TC ---
Addendum entered and electronically signed by Levar Mccormack MD 04/15/24 11:32:
comfoort care
Original Note:
Today's Communication/Plan
-
Continue comfort measurements
Assessment / Plan
Assessment / Plan
63-year-old female with past medical history of frontotemporal dementia, hyperlipidemia, generalized weakness, decreased responsiveness, decreased oral intake, and fever 100.6 was found hypotensive by EMS. BP responded to fluid. Patient unable to
provide history due to dementia. Patient's family members are taking shifts being with her. Son's name Dirk, daughter's name Rhiannon.
A/P:
# Decreased p.o. intake with hypernatremia, Hypotension, SUSY likely prerenal; clinical severe dehydration
Sodium level 162 on admission
She is not drinking liquids that the nurse is aware of
Continue comfort measures
Morphine drip step 4 continue. Maintain dignity. Will increase as necessary
Family continues at bedside
Morphine end of life protocol initiated
# Fever at home, unclear cause currently
Antibiotics d/c
Continue comfort measures
# Frontotemporal dementia (nonverbal at baseline)
# severe dementia
Baseline dementia with Acute Metabolic Encephalopathy
Per daughter, pt unable to feed herself.
hospice appropriate comfort feeds with pureed and thin liquid diet
#Moderate protein calorie malnutrition of chronic illness
BMI 15.5
#Hyperlipidemia
Pt transitioned to comfort measures
Anticipated Discharge: 24 - 48 hours
Subjective/Interval History
-
Date of Service: April 15, 2024
Objective Data
-
Vital Signs:
Vital Signs
Temp Pulse Resp BP Pulse Ox
97.3 F 95 14 90/64 90
04/15/24 07:45 04/15/24 07:45 04/15/24 07:45 04/15/24 07:45 04/15/24 08:00
I&O
04/14/24 04/15/24 04/16/24
06:59 06:59 06:59
Intake Total 0 0
Balance 0 0
Review of Systems
-
Unable to obtain full review of systems at this time due to: Dementia
Physical Exam
-
General: Appears Chronically Ill and Cachectic
Respiratory: Clear to Auscultation
Cardiac: Regular Rhythm and S1/S2
GI: Soft and Nondistended
Musculoskeletal: No Edema
Psych: Apparent Dementia
[2024-04-15 19:04] VITALS: BP 87/63
[2024-04-16 07:40] VITALS: BP 77/55
[2024-04-16] MEDS: MORPHINE 100 IV ×2 (07:59→23:11)
--- NOTE | 2024-04-16 08:40 | W.PN.HOSP.TC ---
Addendum entered and electronically signed by Levar Mccormack MD 04/16/24 14:40:
comfort care
Original Note:
Today's Communication/Plan
-
Continue comfort measures
Assessment / Plan
Assessment / Plan
63-year-old female with past medical history of frontotemporal dementia, hyperlipidemia, generalized weakness, decreased responsiveness, decreased oral intake, and fever 100.6 was found hypotensive by EMS. BP responded to fluid. Patient unable to
provide history due to dementia. Patient's family members are taking shifts being with her. Son's name Dirk, daughter's name Rhiannon.
A/P:
# Decreased p.o. intake with hypernatremia, Hypotension, SUSY likely prerenal; clinical severe dehydration
Sodium level 162 on admission
She is not drinking liquids that the nurse is aware of
Continue comfort measures
Morphine step 4 continue. Maintain dignity. Will increase as necessary
Family continues at bedside
Morphine end of life protocol initiated
# Fever at home, unclear cause currently
Antibiotics d/c
Continue comfort measures
# Frontotemporal dementia (nonverbal at baseline)
# severe dementia
Baseline dementia with Acute Metabolic Encephalopathy
Per daughter, pt unable to feed herself.
hospice appropriate comfort feeds with pureed and thin liquid diet
#Moderate protein calorie malnutrition of chronic illness
BMI 15.5
#Hyperlipidemia
Pt transitioned to comfort measures
Anticipated Discharge: 24 - 48 hours
Subjective/Interval History
-
Date of Service: April 16, 2024
Objective Data
-
Vital Signs:
Vital Signs
Temp Pulse Resp BP Pulse Ox
97.6 F 85 12 77/55 88
04/16/24 07:40 04/16/24 07:40 04/16/24 07:40 04/16/24 07:40 04/16/24 07:40
I&O
04/15/24 04/16/24 04/17/24
06:59 06:59 06:59
Intake Total 0 / 0 0 / 0
Balance 0 / 0 0 / 0
Review of Systems
-
Unable to obtain full review of systems at this time due to: Dementia
Physical Exam
-
General: Appears Chronically Ill
Respiratory: Clear to Auscultation
Cardiac: Regular Rhythm and S1/S2
GI: Soft
Neuro: Negative AO x 3
Psych: Apparent Dementia
[2024-04-16] MEDS: ATIVAN 1 MG IV ×2 (09:51→17:49)
[2024-04-16] MEDS: MORPHINE SULFATE 6 MG IV ×2 (09:52→17:49)
[2024-04-16] MEDS: NSS (PRESERVATIVE FREE) 0.5 ML IV ×2 (09:52→17:49)
--- NOTE | 2024-04-16 11:16 | CM ---
Reviewed the chart notes. Comfort care continues.
[2024-04-16 19:19] VITALS: BP 81/54
[2024-04-17 07:27] VITALS: BP 76/51
[2024-04-17] MEDS: ATIVAN 1 MG IV ×3 (08:25→17:38)
[2024-04-17] MEDS: MORPHINE SULFATE 6 MG IV ×2 (08:25→11:42)
[2024-04-17] MEDS: NSS (PRESERVATIVE FREE) 0.5 ML IV ×3 (08:26→17:38)
--- NOTE | 2024-04-17 11:00 | CM ---
Reviewed the chart notes. Family members at bedside.
Plan: Comfort care continues.
--- NOTE | 2024-04-17 13:50 | W.PN.HOSP.TC ---
Addendum entered and electronically signed by Levar Mccormack MD 04/18/24 14:03:
comfort care
Original Note:
Today's Communication/Plan
-
Continue comfort measures
Discontinue daily physical exams per family request to maintain dignity
Assessment / Plan
Assessment / Plan
63-year-old female with past medical history of frontotemporal dementia, hyperlipidemia, generalized weakness, decreased responsiveness, decreased oral intake, and fever 100.6 was found hypotensive by EMS. BP responded to fluid. Patient unable to
provide history due to dementia. Patient's family members are taking shifts being with her. Son's name Dirk, daughter's name Rhiannon.
A/P:
# Decreased p.o. intake with hypernatremia, Hypotension, SUSY likely prerenal; clinical severe dehydration
Sodium level 162 on admission
She is not drinking liquids that the nurse is aware of
Continue comfort measures
Morphine step 4 continue. Maintain dignity. Will increase as necessary
Family continues at bedside
Morphine end of life protocol initiated
# Fever at home, unclear cause currently
Antibiotics d/c
Continue comfort measures
# Frontotemporal dementia (nonverbal at baseline)
# severe dementia
Baseline dementia with Acute Metabolic Encephalopathy
Per daughter, pt unable to feed herself.
hospice appropriate comfort feeds with pureed and thin liquid diet
#Moderate protein calorie malnutrition of chronic illness
BMI 15.5
#Hyperlipidemia
Pt transitioned to comfort measures
Anticipated Discharge: 24 - 48 hours
Subjective/Interval History
-
Date of Service: April 17, 2024
Patient stable, unchanged. Discontinued daily physical exam per family's request to maintain dignity.
Objective Data
-
Vital Signs:
Vital Signs
Temp Pulse Resp BP Pulse Ox
97.9 F 86 10 76/51 91
04/17/24 07:27 04/17/24 07:27 04/17/24 07:27 04/17/24 07:27 04/17/24 07:27
I&O
04/16/24 04/17/24 04/18/24
06:59 06:59 06:59
Intake Total 0 / 0 75 / 75
Balance 0 / 0 75 / 75
Review of Systems
-
Unable to obtain full review of systems at this time due to: Dementia
[2024-04-17] MEDS: MORPHINE 100 IV (14:30)
[2024-04-17 19:22] VITALS: BP 69/51
[2024-04-18 07:53] VITALS: BP 73/46
[2024-04-18] MEDS: MORPHINE 100 IV ×2 (07:55→23:36)
--- NOTE | 2024-04-18 10:59 | W.PN.HOSP.TC ---
Today's Communication/Plan
-
comfort care
Assessment / Plan
Assessment / Plan
Limited exam
-RRR, no murmurs, CTA
-b/l eye crusted over
Frontotemporal dementia (nonverbal at baseline)
Severe dementia
Baseline dementia with Acute Metabolic Encephalopathy
Per daughter, pt unable to feed herself.
hospice appropriate comfort feeds with pureed and thin liquid diet
#Moderate protein calorie malnutrition of chronic illness
BMI 15.5
Comfort care measures
Anticipated Discharge: Within 24 hours
Subjective/Interval History
-
Date of Service: April 18, 2024
Per nursing no overnight events
Family was not at bedside when I evaluated her this AM
Objective Data
-
Vital Signs:
Vital Signs
Temp Pulse Resp BP Pulse Ox
97.2 F 74 12 73/46 94
04/18/24 07:53 04/18/24 07:53 04/18/24 07:53 04/18/24 07:53 04/18/24 07:53
I&O
04/17/24 04/18/24 04/19/24
06:59 06:59 06:59
Intake Total 75 / 75 147 / 147
Output Total 0 / 0
Balance 75 / 75 147 / 147
[2024-04-18 23:00] VITALS: BP 83/55
[2024-04-19 07:40] VITALS: BP 79/52
--- NOTE | 2024-04-19 10:52 | CM ---
Chart reviewed
Pt remains on comfort care
CM available to family prn
PLan - continue comfort care
--- NOTE | 2024-04-19 10:54 | W.PN.HOSP.TC ---
Today's Communication/Plan
-
Comfort care
Assessment / Plan
Assessment / Plan
Physical exam
Appears comfortable
Frontotemporal dementia (nonverbal at baseline)
Severe dementia
Baseline dementia with Acute Metabolic Encephalopathy
Per daughter, pt unable to feed herself.
hospice appropriate comfort feeds with pureed and thin liquid diet
#Moderate protein calorie malnutrition of chronic illness
BMI 15.5
Comfort care measures
Continue to provide dignity and hygiene
Family (daughter) kindly has asked for no more medical evals until prouncement
Anticipated Discharge: Within 24 hours
Subjective/Interval History
-
Date of Service: April 19, 2024
No reported events overnight
Remains on morphine gtt
Objective Data
-
Vital Signs:
Vital Signs
Temp Pulse Resp BP Pulse Ox
96.4 F L 89 14 79/52 92
04/19/24 07:40 04/19/24 07:40 04/19/24 07:40 04/19/24 07:40 04/19/24 07:40
I&O
04/18/24 04/19/24 04/20/24
06:59 06:59 06:59
Intake Total 147 / 147 144 / 144
Output Total 0 / 0
Balance 147 / 147 144 / 144
[2024-04-19] MEDS: MORPHINE 100 IV (15:09)
[2024-04-19 22:59] VITALS: BP 90/59
[2024-04-20] MEDS: MORPHINE 100 IV ×2 (07:19→23:46)
[2024-04-20 07:30] VITALS: BP 75/51
--- NOTE | 2024-04-20 09:05 | CM ---
Reviewed the chart notes. CM continues to be available to patient.
Plan: Comfort care continues.
[2024-04-20] MEDS: MORPHINE SULFATE 6 MG IV (10:51)
[2024-04-20] MEDS: ATIVAN 1 MG IV (10:52)
[2024-04-20] MEDS: NSS (PRESERVATIVE FREE) 0.5 ML IV (10:53)
[2024-04-20] MEDS: ROBINUL 0.2 MG IV (10:53)
--- NOTE | 2024-04-20 13:56 | W.PN.HOSP.TC ---
Today's Communication/Plan
-
Continue comfort measures
Assessment / Plan
Assessment / Plan
Physical exam
Appears comfortable
Frontotemporal dementia (nonverbal at baseline)
Severe dementia
Baseline dementia with Acute Metabolic Encephalopathy
Per daughter, pt unable to feed herself.
hospice appropriate comfort feeds with pureed and thin liquid diet
#Moderate protein calorie malnutrition of chronic illness
BMI 15.5
Comfort care measures - continue morphine drip step 4
Continue to provide dignity and hygiene
Family (daughter) kindly has asked for no more medical evals until prouncement
Anticipated Discharge: Within 24 hours
Subjective/Interval History
-
Date of Service: April 20, 2024
Patient comfortable. Discontinuing physical exam per family request to maintain patient dignity.
Objective Data
-
Vital Signs:
Vital Signs
Temp Pulse Resp BP Pulse Ox
98.9 F 92 14 75/51 80
04/20/24 07:30 04/20/24 07:30 04/20/24 07:30 04/20/24 07:30 04/20/24 07:30
I&O
04/19/24 04/20/24 04/21/24
06:59 06:59 06:59
Intake Total 144 / 144
Balance 144 / 144
Review of Systems
-
Unable to obtain full review of systems at this time due to: Dementia
[2024-04-20 19:51] VITALS: BP 75/51
[2024-04-21 08:00] VITALS: BP 72/44
--- NOTE | 2024-04-21 09:29 | W.PN.HOSP.TC ---
Addendum entered and electronically signed by Socrates Richter MD 04/21/24 13:58:
Pt on hospice .
CW comfort measures.
Original Note:
Today's Communication/Plan
-
Continue comfort measures
Assessment / Plan
Assessment / Plan
Physical exam
Appears comfortable
Frontotemporal dementia (nonverbal at baseline)
Severe dementia
Baseline dementia with Acute Metabolic Encephalopathy
Per daughter, pt unable to feed herself.
hospice appropriate comfort feeds with pureed and thin liquid diet
#Moderate protein calorie malnutrition of chronic illness
BMI 15.5
Continue comfort care measures - continue morphine drip step 4
Continue to provide dignity and hygiene
Family (daughter) kindly has asked for no more medical evals until pronouncement
Anticipated Discharge: Within 24 hours
Subjective/Interval History
-
Date of Service: April 21, 2024
Objective Data
-
Vital Signs:
Vital Signs
Temp Pulse Resp BP Pulse Ox
98.2 F 88 10 72/44 90
04/21/24 08:00 04/21/24 08:00 04/21/24 08:00 04/21/24 08:00 04/21/24 08:00
Review of Systems
-
Unable to obtain full review of systems at this time due to: Dementia
--- NOTE | 2024-04-21 09:35 | HOSPNOTE ---
Patient remains comfortable on Morphine continuous infusion at step 6. At this time she does not meet GIP level of care standards. She is actively dying with BP 72/44, HR 88 RR 10 and temp 98.2 this am. The need to intervene with prn medications is
rare. 04/20 Morphine, Ativan and Robinul x 1, prior to those last prn 04/17/24. Support given to .
--- NOTE | 2024-04-21 10:36 | CM ---
Reviewed the chart notes. Patient's spouse at bedside. CM continues to be available to patient.
Plan: Comfort care continues.
[2024-04-21] MEDS: MORPHINE 100 IV (16:39)
[2024-04-21 19:27] VITALS: BP 69/44
[2024-04-22] MEDS: MORPHINE 100 IV ×2 (07:52→22:44)
[2024-04-22 08:00] VITALS: BP 73/55
--- NOTE | 2024-04-22 09:03 | W.PN.HOSP.TC ---
Addendum entered and electronically signed by Socrates Richter MD 04/22/24 14:43:
Patient on hospice. Comfortable. Continue with the current measures.
Original Note:
Today's Communication/Plan
-
Continue comfort care measures
Assessment / Plan
Assessment / Plan
Physical exam
Appears comfortable
Frontotemporal dementia (nonverbal at baseline)
Severe dementia
Baseline dementia with Acute Metabolic Encephalopathy
Per daughter, pt unable to feed herself.
hospice appropriate comfort feeds with pureed and thin liquid diet
#Moderate protein calorie malnutrition of chronic illness
BMI 15.5
Continue comfort care measures - continue morphine drip step 4
Continue to provide dignity and hygiene
Has not had any PO intake for past few weeks
Family (daughter) kindly has asked for no more medical evals until pronouncement
Anticipated Discharge: Within 24 hours
Subjective/Interval History
-
Date of Service: April 22, 2024
Objective Data
-
Vital Signs:
Vital Signs
Temp Pulse Resp BP Pulse Ox
97.9 F 90 6 69/44 90
04/21/24 19:27 04/21/24 19:27 04/21/24 19:27 04/21/24 19:27 04/21/24 19:27
I&O
04/21/24 04/22/24 04/23/24
06:59 06:59 06:59
Intake Total 0 / 0
Output Total 0 / 0
Balance 0 / 0
Review of Systems
-
Unable to obtain full review of systems at this time due to: Dementia
--- NOTE | 2024-04-22 10:07 | CM ---
Reviewed the chart notes. CM continues to be available to patient.
Plan: Comfort care continues.
[2024-04-22 19:25] VITALS: BP 74/49
[2024-04-23 07:30] VITALS: BP 75/47
--- NOTE | 2024-04-23 12:38 | W.PN.HOSP.TC ---
Addendum entered and electronically signed by Socrates Richter MD 04/23/24 13:27:
Patient on hospice. Looks comfortable. Continue with current treatments.
Discussed with family at bedside-they find her to be comfortable.
Original Note:
Today's Communication/Plan
-
Continue comfort measures
Assessment / Plan
Assessment / Plan
Physical exam
Appears comfortable
Frontotemporal dementia (nonverbal at baseline)
Severe dementia
Baseline dementia with Acute Metabolic Encephalopathy
Per daughter, pt unable to feed herself.
hospice appropriate comfort feeds with pureed and thin liquid diet
#Moderate protein calorie malnutrition of chronic illness
BMI 15.5
Continue comfort care measures - continue morphine drip step 4
Continue to provide dignity and hygiene
Family (daughter) kindly has asked for no more medical evals until pronouncement
Anticipated Discharge: Within 24 hours
Subjective/Interval History
-
Date of Service: April 23, 2024
Objective Data
-
Vital Signs:
Vital Signs
Temp Pulse Resp BP Pulse Ox
98.0 F 90 10 75/47 97
04/23/24 07:30 04/23/24 07:30 04/23/24 07:30 04/23/24 07:30 04/23/24 07:30
I&O
04/22/24 04/23/24 04/24/24
06:59 06:59 06:59
Intake Total 0 / 0
Output Total 0 / 0
Balance 0 / 0
Review of Systems
-
Unable to obtain full review of systems at this time due to: Dementia
[2024-04-23] MEDS: MORPHINE 100 IV (15:05)
[2024-04-23 19:31] VITALS: BP 72/48
[2024-04-24] MEDS: MORPHINE 100 IV (04:27)
[2024-04-24] MEDS: MORPHINE SULFATE 6 MG IV (04:35)
--- NOTE | 2024-04-24 09:26 | W.PN.DEATH ---
Pronouncement of
-
Called to see patient to pronounce.
No spontaneous heart tones or respirations noted.
Patient not responsive to verbal stimuli.
Patient is pronounced .
Time of : 09:21
Date of : 04/24/24
Cause of : Frontotemporal dementia, failure to thrive
Family Notified: Yes
--- NOTE | 2024-04-24 09:31 | CM ---
Patient this am. physician updated family. CM will continue to follow for discharge planning needs.
Plan;
--- NOTE | 2024-04-24 09:45 | PTCARENOTE ---
Patient found pulseless and without respirations this morning at 0908. Attending and resident notified to pronounce. [facility] of life called; end of life care provided. Spoke with patient's daughter who stated that patient's and son will visit
the decedent.
--- NOTE | 2024-04-24 12:05 | W.PN.HOSP.TC ---
Addendum entered and electronically signed by Socrates Richter MD 04/24/24 14:55:
Patient was on hospice and peacefully today. Family aware.
summary and certification done.
Original Note:
Today's Communication/Plan
-
Patient peacefully on comfort cares
Assessment / Plan
Assessment / Plan
Physical exam
Appears comfortable
Frontotemporal dementia (nonverbal at baseline)
Severe dementia
Baseline dementia with Acute Metabolic Encephalopathy
Per daughter, pt unable to feed herself.
hospice appropriate comfort feeds with pureed and thin liquid diet
#Moderate protein calorie malnutrition of chronic illness
BMI 15.5
Continue comfort care measures - continue morphine drip step 4
Continue to provide dignity and hygiene
Was updated by nurse at 9:08 that the patient suspected to have passed. Pronounced on 9:21. Patient peacefully.
Family (daughter) kindly has asked for no more medical evals until pronouncement
Anticipated Discharge: Today
Subjective/Interval History
-
Date of Service: April 24, 2024
Objective Data
-
Vital Signs:
Vital Signs
Temp Pulse Resp BP Pulse Ox
99.5 F 94 10 72/48 94
04/24/24 07:49 04/23/24 19:31 04/23/24 19:31 04/23/24 19:31 04/23/24 19:31
I&O
04/23/24 04/24/24 04/25/24
06:59 06:59 06:59
Intake Total 0 / 0
Output Total 0 / 0
Balance 0 / 0
Review of Systems
-
Unable to obtain full review of systems at this time due to: Other (Patient )
--- NOTE | 2024-04-24 17:27 | W.DCSUMMARY ---
Discharge Summary
Discharge Data
Date of Admission: 03/28/24
Date of Discharge: 04/24/24
-
Pending Results: No
Hospital Course
Primary Diagnosis:
Acute Kidney Injury
Hypernatremia
Hypotension
Clinical severe dehydration
Fever unclear cause
Frontotemporal dementia
Secondary diagnosis:
HLD
Depression
Hospital Course:
63 y/o female with PMHx of frontotemportal dementia presented to the ED from a memory care unit on 03/28/24 with fever 100.6 noted at home, increased confusion and decreased responsiveness. She was found to be hypotensive by EMS but responded to
fluids. Sodium was 162, WBC 12.1, Cr 1.1, lactate 1.7. Chest x-ray clear, Urine clean, covid and flu (-), afebrile in ED. Due to unclear origin and non-verbal at baseline, empiric antibiotics ceftriaxone, vancomycin and flagyl started. Patient
unable to feed herself at baseline. Incredibly poor quality of life. Palliative care consult was requested. Family decided to move patient to comfort measures. Fluids and antibiotics were discontinued. Morphine drip started. Patient continued on
comfort measures until 04/24/2024 when she peacefully.
Discharge Plan
-
Patient Disposition:
Date/Time
Date/Time: 04/24/24 09:25
Discharge Date and Time
Discharge Date/Time: 04/24/24 12:52
Print Language: LATVIAN
== END 2024-04-24 12:52 | disposition expired | DRG 682 ==
LOC: 2 NORTH 18:07
PROVIDERS: ADMITTING PHYSICIAN Internal Medicine; ATTENDING PHYSICIAN Internal Medicine; EMERGENCY PHYSICIAN Emergency Medicine; FAMILY PHYSICIAN Internal Medicine
DX: N17.9 Acute kidney failure, unspecified (principal); G93.41 Metabolic encephalopathy; E87.0 Hyperosmolality and hypernatremia; F02.C3 Dementia in other diseases classified elsewhere, severe, with mood disturbance; E44.0 Moderate protein-calorie malnutrition; Z68.1 Body mass index [BMI] 19.9 or less, adult; G31.09 Other frontotemporal neurocognitive disorder; R50.9 Fever, unspecified; Z51.5 Encounter for palliative care; F32.A Depression, unspecified; R63.30 Feeding difficulties, unspecified; R62.7 Adult failure to thrive; E86.0 Dehydration; I95.9 Hypotension, unspecified; E78.5 Hyperlipidemia, unspecified; Z66 Do not resuscitate; Z99.3 Dependence on wheelchair; Z85.42 Personal history of malignant neoplasm of other parts of uterus; Z90.710 Acquired absence of both cervix and uterus; Z85.828 Personal history of other malignant neoplasm of skin; Z11.52 Encounter for screening for COVID-19
CPT/HCPCS: 51701; 71045; 80048; 80053; 81003; 81015; 83605; 84145; 84484; 85025; 85027; 87040; 87070; 87502; 87811; 92526; 93005; 96361; 96365; 96367; 97163; 97167; 99285